=== PATIENT | male | born 1935 | race Caucasian/White ===

== ENCOUNTER 2019-11-18 09:01 | Emergency (ER) | payer MEDICARE, OTHER ==
--- NOTE | 2019-11-18 09:15 | ERPHSYRPT ---
- History of Present Illness Time Seen by Provider: 11/18/19 09:05 Source: patient Exam Limitations: no limitations Physician History: 84 years old male with recent TAVR done at [facility] currently on heart monitor is sent in ER when his heart monitor showed complete heart block in and out multiple times. They try to get hold of him but could not stand later called son and patient is brought in here. Patient reports no chest pain palpitations or shortness of breath. Patient reports since he has a stent put in he is feeling much better and his shortness of breath which used to be there is almost gone. Denies any fever or chills. He is taking Coumadin. Timing/Duration: today Allergies/Adverse Reactions: No Known Drug Allergies Allergy (Unverified 11/18/19 09:20) Home Medications: Atorvastatin Calcium 20 mg DAILY 11/18/19 [History] Celecoxib [Celebrex] 200 mg PO DAILY 11/18/19 [History] Famotidine 20 mg DAILY 11/18/19 [History] Hydrocodone/APAP 10/325 mg [[place] 10/325 MG Tablet] 1 ea BID 11/18/19 [ History] Methimazole 5 mg DAILY 11/18/19 [History] Potassium Chloride 1 ea DAILY 11/18/19 [History] - Review of Systems Constitutional: No Symptoms Eyes: No Symptoms Ears, Nose, & Throat: No Symptoms Respiratory: No Symptoms Cardiac: No Symptoms Abdominal/Gastrointestinal: No Symptoms Genitourinary Symptoms: No Symptoms Musculoskeletal: No Symptoms Skin: No Symptoms Neurological: No Symptoms Psychological: No Symptoms Endocrine: No Symptoms Hematologic/Lymphatic: No Symptoms Immunological/Allergic: No Symptoms - Nursing Vital Signs Nursing Vital Signs: Initial Vital Signs Temperature 97.3 F 11/18/19 09:02 Pulse Rate 69 11/18/19 09:02 Respiratory Rate 16 11/18/19 09:02 Blood Pressure 169/55 11/18/19 09:02 O2 Sat by Pulse Oximetry 98 11/18/19 09:02 Pain Scale Pain Intensity 0 - Physical Exam General Appearance: no apparent distress Eye Exam: PERRL/EOMI Ears, Nose, Throat Exam: normal ENT inspection, pharynx normal Neck Exam: normal inspection, supple, full range of motion Respiratory Exam: normal breath sounds, lungs clear, No chest tenderness Cardiovascular Exam: regular rate/rhythm, normal heart sounds, normal peripheral pulses, murmur Gastrointestinal/Abdomen Exam: soft, normal bowel sounds, No tenderness Back Exam: normal inspection Extremity Exam: normal inspection, normal range of motion Neurologic Exam: alert, oriented x 3, cooperative SpO2 Interpretation: normal O2 Delivery: Room Air - Course Nursing assessment & vital signs reviewed: Yes EKG Interpreted by Me: RATE (Ectopic atrial, 69), NORMAL AXIS, NORMAL INTERVALS , Other (Diffuse ST depression in multiple leads) Ordered Tests: Active Orders 24 hr Category Date Time Status Planishing Press Operator STAT Care 11/18/19 09:13 Active EKG-ER Only STAT Care 11/18/19 09:11 Active IV Insertion STAT Care 11/18/19 09:11 Active CHEST 2 VIEWS (PA AND LAT) Stat Exams 11/18/19 09:12 Completed CBC W DIFF Stat Lab 11/18/19 09:15 Completed CMP Stat Lab 11/18/19 09:15 Completed NT PRO BNP Stat Lab 11/18/19 09:15 Completed PROTIME WITH INR Stat Lab 11/18/19 09:15 Completed TROPONIN Q3H Lab 11/18/19 09:15 Completed TROPONIN Q3H Lab 11/18/19 12:15 Ordered TROPONIN Q3H Lab 11/18/19 15:15 Ordered TROPONIN Q3H Lab 11/18/19 18:15 Ordered TROPONIN Q3H Lab 11/18/19 21:15 Ordered Lab/Rad Data: Laboratory Result Diagrams 11/18/19 09:15 11/18/19 09:15 Laboratory Results 11/18/19 11/18/19 11/18/19 Range/Units 09:15 09:15 09:15 WBC (4.0-10.5) K/mm3 RBC (4.1-5.6) M/mm3 Hgb (12.5-18.0) gm/dl Hct (42-50) % MCV (78-100) fl MCH (26-32) pg MCHC (32-36) g/dl RDW (11.5-14.0) % Plt Count (150-450) K/mm3 MPV (7.5-11.0) fl Gran % (36.0-66.0) % Eos # (Auto) (0-0.5) Absolute Lymphs (auto) (1.0-4.6) Absolute Monos (auto) (0.0-1.3) Lymphocytes % (24.0-44.0) % Monocytes % (0.0-12.0) % Eosinophils % (0.00-5.0) % Basophils % (0.0-0.4) % Absolute Granulocytes (1.4-6.9) Basophils # (0-0.4) PT 18.5 H (8.83-12.87) SECONDS INR 1.62 (0.8-3.0) Sodium 141 (137-145) mmol/L Potassium 4.1 (3.5-5.1) mmol/L Chloride 105 (98-107) mmol/L Carbon Dioxide 28 (22-30) mmol/L Anion Gap 11.9 (5-15) MEQ/L BUN 20 (9-20) mg/dL Creatinine 0.51 L (0.66-1.25) mg/dL Estimated GFR > 60.0 ML/MIN Glucose 103 (74-106) mg/dL Calcium 9.0 (8.4-10.2) mg/dL Total Bilirubin 0.50 (0.2-1.3) mg/dL AST 31 (17-59) U/L ALT 30 (0-50) U/L Alkaline Phosphatase 67 (38-126) U/L Troponin I 0.024 (0.000-0.034) ng/mL NT-Pro-B Natriuret Pep 290 (0-1800) pg/mL Serum Total Protein 7.1 (6.3-8.2) g/dL Albumin 4.0 (3.5-5.0) g/dL Slides for Path Review 11/18/19 Range/Units 09:15 WBC 5.0 (4.0-10.5) K/mm3 RBC 3.90 L (4.1-5.6) M/mm3 Hgb 12.4 L (12.5-18.0) gm/dl Hct 38.0 L (42-50) % MCV 97.4 (78-100) fl MCH 31.8 (26-32) pg MCHC 32.6 (32-36) g/dl RDW 12.9 (11.5-14.0) % Plt Count 97 L (150-450) K/mm3 MPV 11.9 H (7.5-11.0) fl Gran % 63.2 (36.0-66.0) % Eos # (Auto) 0.20 (0-0.5) Absolute Lymphs (auto) 1.18 (1.0-4.6) Absolute Monos (auto) 0.43 (0.0-1.3) Lymphocytes % 23.6 L (24.0-44.0) % Monocytes % 8.6 (0.0-12.0) % Eosinophils % 4.0 (0.00-5.0) % Basophils % 0.6 (0.0-0.4) % Absolute Granulocytes 3.17 (1.4-6.9) Basophils # 0.03 (0-0.4) PT (8.83-12.87) SECONDS INR (0.8-3.0) Sodium (137-145) mmol/L Potassium (3.5-5.1) mmol/L Chloride (98-107) mmol/L Carbon Dioxide (22-30) mmol/L Anion Gap (5-15) MEQ/L BUN (9-20) mg/dL Creatinine (0.66-1.25) mg/dL Estimated GFR ML/MIN Glucose (74-106) mg/dL Calcium (8.4-10.2) mg/dL Total Bilirubin (0.2-1.3) mg/dL AST (17-59) U/L ALT (0-50) U/L Alkaline Phosphatase (38-126) U/L Troponin I (0.000-0.034) ng/mL NT-Pro-B Natriuret Pep (0-1800) pg/mL Serum Total Protein (6.3-8.2) g/dL Albumin (3.5-5.0) g/dL Slides for Path Review - Progress Progress: unchanged, re-examined Progress Note: 11/18/19 09:52 84 years old is evaluated for complete heart block. Patient has ectopic atrial rhythm. He is not in any distress. Initial troponin negative. Chest x-ray did not show any acute findings. [facility] office is contacted , recommended patient needing pacemaker placement. They will call us back with the bed. 11/18/19 12:19 Dr. Mcfadden is the accepting physician. Patient remained stable. He is being transferred via EMS Will see patient in: other Counseled pt/family regarding: diagnosis, need for follow-up, rad results - Departure Departure Disposition: Transfer Clinical Impression: Intermittent complete heart block Condition: Stable Critical Care Time: No Referrals: AKASH FRAUSTO [Primary Care Provider] -
--- NOTE | 2019-11-18 09:46 | XRAY ---
Indication: CHF. Pneumonia. Comparison: None PA/lateral chest hyperinflated and clear with incidental bilateral nipple shadows. Heart is not enlarged with previous cardiac valve replacement. Only thorax intact with mild osteopenia and degenerative changes. Impression: Nonacute hyperinflated chest with chronic features.
[2019-11-18 09:57] LABS: INR 1.62 (0.8-3.0); PROTIME 18.5 SECONDS (8.83-12.87)
[2019-11-18 10:00] LABS: Absolute Neutrophil Ct (ANC) 3.17 (1.4-6.9); BASOPHIL % 0.6 % (0.0-0.4); Basophil (Absolute #) 0.03 (0-0.4); Hemoglobin 12.4 gm/dl (12.5-18.0); Lymphocyte (Absolute #) 1.18 (1.0-4.6); Lymphocytes % 23.6 % (24.0-44.0); Mean Cell Volume 97.4 fl (78-100); Mean Corpuscular Hemoglobin 31.8 pg (26-32); Mean Corpuscular Hgb Concent. 32.6 g/dl (32-36); Mean Platelet Volume 11.9 fl (7.5-11.0); Monocyte (Absolute #) 0.43 (0.0-1.3); Monocytes % 8.6 % (0.0-12.0); Neutrophil % 63.2 % (36.0-66.0); Platelet Count 97 K/mm3 (150-450); Red Cell Distribution Width 12.9 % (11.5-14.0)
[2019-11-18 10:11] LABS: ALKALINE PHOSPHATASE 67 U/L (38-126); ANION GAP 11.9 MEQ/L (5-15); BLOOD UREA NITROGEN 20 mg/dL (9-20); CHLORIDE 105 mmol/L (98-107); Carbon Dioxide 28 mmol/L (22-30); Creatinine 1 0.51 mg/dL (0.66-1.25); Glucose 103 mg/dL (74-106); NT PRO BNP 290 pg/mL (0-1800); Potassium 4.1 mmol/L (3.5-5.1); SGOT/AST 31 U/L (17-59); SGPT/ALT 30 U/L (0-50); SODIUM 141 mmol/L (137-145); Total Protein 7.1 g/dL (6.3-8.2)
[2019-11-18 13:32] VITALS: BP 142/57
[2019-11-18 13:34] VITALS: PULSE 65; O2SAT 99
== END 2019-11-18 13:22 | disposition critical access hospital (66) ==
LOC: ED 09:01
DX: I44.2 Atrioventricular block, complete (principal); Z79.01 Long term (current) use of anticoagulants; Z79.899 Other long term (current) drug therapy
CPT/HCPCS: 36000; 36415; 71046; 80053; 83880; 84484; 85025; 85610; 93005; 93041; 99285

== ENCOUNTER 2020-09-12 11:14 | Day surgery (SDC) | payer MEDICARE, OTHER ==
[2020-09-12] MEDS ORDERED: Depo-Medrol 40 MG/ML IM ONE (11:15)
[2020-09-12] MEDS ORDERED: Xylocaine 1% Vial 30 ML PF IJ ONE (11:15)
[2020-09-12] MEDS ORDERED: LIDOCAINE HCL 2% 100 MG/5 ML IJ ONE (11:15)
[2020-09-12 12:35] LABS: INR 1.23 (0.8-3.0); PROTIME 13.9 SECONDS (8.83-12.87)
[2020-09-12] MEDS ORDERED: Versed 2 MG/2 ML Injection ONE (13:22)
[2020-09-12] MEDS ORDERED: SUBLIMAZE 100 MCG/2 ML ONE (13:22)
[2020-09-12] MEDS ORDERED: Lactated Ringers 1,000 ML IV ONE (15:05)
--- NOTE | 2020-09-12 15:12 | XRAY ---
Indication: Bilateral L4-S1 MBB. Intraoperative fluoroscopy provided for 15 seconds. 2 digital spot images submitted for interpretation demonstrates posterior needle tips projecting over the expected left and right L4-S1 nerve roots. Correlate with intraoperative findings/report.
--- NOTE | 2020-09-12 15:17 | XRAY ---
15 seconds fluoroscopy time in surgery for bilateral L4-S1 MBB.
== END 2020-09-12 13:51 | disposition home or self-care (01) ==
LOC: SDC-PAIN 11:14
PROVIDERS: ATTEND Psychiatry & Neurology Pain Medicine
DX: M47.816 Spondylosis without myelopathy or radiculopathy, lumbar region (principal); I82.409 Acute embolism and thrombosis of unspecified deep veins of unspecified lower extremity; I35.0 Nonrheumatic aortic (valve) stenosis; M54.12 Radiculopathy, cervical region; M19.90 Unspecified osteoarthritis, unspecified site; Z79.899 Other long term (current) drug therapy
CPT/HCPCS: 36415; 64493; 64494; 72020; 77002; 85610; J1030; J2001; J2250; J3010

== ENCOUNTER 2022-02-22 14:41 | Emergency (ER) | payer MEDICARE ==
[2022-02-22 15:22] LABS: Absolute Neutrophil Ct (ANC) 9.68 x10^3/uL (1.4-6.9); Basophil (Absolute #) 0.03 x10^3/uL (0-0.4); Eosinophil (Absolute #) 0 x10^3/uL (0-0.5); Hematocrit 36.1 % (42-50); Hemoglobin 11.5 g/dL (12.5-18.0); Lymphocyte (Absolute #) 0.34 x10^3/uL (1.0-4.6); Lymphocytes % 3.2 % (24.0-44.0); Mean Cell Volume 98.9 fL (78-100); Mean Corpuscular Hemoglobin 31.5 pg (26-32); Mean Corpuscular Hgb Concent. 31.9 g/dL (32-36); Monocyte (Absolute #) 0.46 x10^3/uL (0.0-1.3); Monocytes % 4.4 % (0.0-12.0); Neutrophil % 91.7 % (36.0-66.0); Platelet Count 109 x10^3/uL (150-450); Red Blood Count 3.65 x10^6/uL (4.1-5.6); Red Cell Distribution Width 13.1 % (11.5-14.0); White Blood Count 10.6 x10^3/uL (4.0-10.5)
[2022-02-22 15:26] LABS: Mucus SLIGHT /HPF (NEGATIVE); WBC 0-2 /HPF (0-5)
[2022-02-22 15:32] LABS: Appearance CLEAR (CLEAR); Bilirubin NEGATIVE (NEGATIVE); Glucose NEGATIVE (NEGATIVE); Ketones NEGATIVE (NEGATIVE); Protein,Urine Dip NEGATIVE (Negative); RBC MODERATE Ery/ul (0-5); Specific Gravity 1.015 (1.005-1.025); Urine Cultured Indicated? YES; Urobilinogen 0.2 mg/dL (0-1)
[2022-02-22 15:33] LABS: ALBUMIN 4.4 g/dL (3.5-5.0); ALKALINE PHOSPHATASE 74 U/L (38-126); BLOOD UREA NITROGEN 16 mg/dL (9-20); CHLORIDE 100 mmol/L (98-107); Calcium 9.4 mg/dL (8.4-10.2); Carbon Dioxide 31 mmol/L (22-30); Creatinine 1 0.59 mg/dL (0.66-1.25); Dipstick done @ ? MAIN LAB; EST GLOMERULAR FILTRATION RATE > 60.0 ML/MIN; Glucose 130 mg/dL (74-106); LIPASE 76 U/L (23-300); Nitrite POSITIVE (NEGATIVE); Potassium 3.9 mmol/L (3.5-5.1); SGOT/AST 50 U/L (17-59); SGPT/ALT 35 U/L (0-50); SODIUM 137 mmol/L (137-145); Total Protein 7.7 g/dL (6.3-8.2)
--- NOTE | 2022-02-22 15:37 | ERPHSYRPT ---
- History of Present Illness Time Seen by Provider: 02/22/22 14:46 Historian: patient Exam Limitations: no limitations Patient Subjective Stated Complaint: C/O lower abdominal pain with constipation and burning/troubles urinating for a few days. Triage Nursing Assessment: Patient is alert and oriented. No SOB noted. Abdomen is soft and flat. C/O increased tenderness with palpation to right lower abdomen. Physician History: Patient here with lower abdominal pain. Inability to pee since yesterday. Patient has some urinary retention. Associated with his back pain, with constipation. No falls no trauma no fever no chills. No other red flag symptoms for back pain. No falls no trauma. Patient did see his PCP yesterday. Timing/Duration: yesterday Activities at Onset: none Quality: cramping Abdominal Pain Onset Location: suprapubic Pain Radiation: no radiation Severity of Pain-Max: mild Severity of Pain-Current: mild Associated Symptoms: other Allergies/Adverse Reactions: No Known Drug Allergies Allergy (Verified 02/22/22 14:51) Home Medications: Atorvastatin Calcium 20 mg PO HS 11/18/19 [History] Hydrocodone/APAP 10/325 mg [[place] 10/325 MG Tablet] 1 ea PO BID PRN 11/18/19 [History] Methimazole 7.5 mg PO DAILY 11/18/19 [History] Potassium Chloride 1 tab PO BID 11/18/19 [History] Doxazosin Mesylate [Cardura] 1 tab PO DAILY 02/22/22 [History] Melatonin 1 tab PO HS 02/22/22 [History] Multivitamin 1 tab PO DAILY 02/22/22 [History] Warfarin Sodium 1 tab PO DAILY 02/22/22 [History] Warfarin Sodium 5 mg [Jantoven] 1 tab PO DAILY 02/22/22 [History] Hx Tetanus, Diphtheria Vaccination/Date Given: Yes Hx Influenza Vaccination/Date Given: Yes Hx Pneumococcal Vaccination/Date Given: Yes Immunizations Up to Date: Yes Travel Risk - International Travel Have you traveled outside of the country in past 3 weeks: No - Coronavirus Screening Are you exhibiting any of the following symptoms?: No Close contact with a COVID-19 positive Pt in past 14-21 Days: No - Vaccine Status Have you recieved a Covid-19 vaccination: Yes Adjudication Specialist: Moderna - Vaccination Dates Date of 2cond Vaccination (if applicable): 08/24/20 - Review of Systems Constitutional: No Fever, No Chills Eyes: No Symptoms Ears, Nose, & Throat: No Symptoms Respiratory: No Cough, No Dyspnea Cardiac: No Chest Pain, No Edema, No Syncope Abdominal/Gastrointestinal: Abdominal Pain, No Nausea, No Vomiting, No Diarrhea Genitourinary Symptoms: Urinary Retention, No Dysuria Musculoskeletal: No Back Pain, No Neck Pain Skin: No Rash Neurological: No Dizziness, No Focal Weakness, No Sensory Changes Psychological: No Symptoms Endocrine: No Symptoms All Other Systems: Reviewed and Negative - Past Medical History Pertinent Past Medical History: Yes Cardiac History: Coronary Artery Disease, High Cholesterol, Hypertension Endocrine Medical History: Hyperthyroidism Musculoskeletal History: Arthritis GI Medical History: GERD Psycho-Social History: Other Other Medical History: chronic back pain, insomnia, seasonal allergies - Past Surgical History Past Surgical History: Yes Cardiac: Cardiac Catheterization, Cardiac Stent, Pacemaker Musculoskeletal: Orthopedic Surgery Other Surgical History: knee replaced - Social History Smoking Status: Never smoker Exposure to second hand smoke: No Drug Use: none Patient Lives Alone: No - Nursing Vital Signs Nursing Vital Signs: Initial Vital Signs Temperature 97.7 F 02/22/22 14:51 Pulse Rate 83 02/22/22 14:51 Respiratory Rate 17 02/22/22 14:51 Blood Pressure 176/89 02/22/22 14:51 O2 Sat by Pulse Oximetry 96 02/22/22 14:51 Pain Scale Pain Intensity 2 - Physical Exam General Appearance: no apparent distress, alert Eye Exam: PERRL/EOMI, eyes nml inspection Ears, Nose, Throat Exam: normal ENT inspection, pharynx normal, moist mucous membranes Neck Exam: normal inspection, non-tender, supple, full range of motion Respiratory Exam: normal breath sounds, lungs clear, No respiratory distress Cardiovascular Exam: regular rate/rhythm, normal heart sounds Gastrointestinal/Abdomen Exam: soft, tenderness, other (Mild abdominal tenderness with no rebound or guarding.), No mass Back Exam: normal inspection, normal range of motion, No CVA tenderness, No vertebral tenderness Extremity Exam: normal inspection, normal range of motion, pelvis stable Neurologic Exam: alert, oriented x 3, cooperative, normal mood/affect, nml cerebellar function, sensation nml, No motor deficits Skin Exam: normal color, warm, dry SpO2: 96 - Course Nursing assessment & vital signs reviewed: Yes EKG Interpreted by Me: Sinus Rhythm Ordered Tests: Active Orders 24 hr Category Date Time Status EKG-ER Only STAT Care 02/22/22 15:04 Active IV Insertion STAT Care 02/22/22 15:04 Active CBC W DIFF Stat Lab 02/22/22 15:20 Completed CMP Stat Lab 02/22/22 15:20 Completed CULTURE,URINE Stat Lab 02/22/22 15:20 Received LIPASE Stat Lab 02/22/22 15:20 Completed UA W/RFX CULTURE Stat Lab 02/22/22 15:20 Completed Lab/Rad Data: Laboratory Result Diagrams 02/22/22 15:20 02/22/22 15:20 Laboratory Results 02/22/22 02/22/22 02/22/22 Range/Units 15:20 15:20 15:20 WBC 10.6 H (4.0-10.5) x10^3/uL RBC 3.65 L (4.1-5.6) x10^6/uL Hgb 11.5 L (12.5-18.0) g/dL Hct 36.1 L (42-50) % MCV 98.9 (78-100) fL MCH 31.5 (26-32) pg MCHC 31.9 L (32-36) g/dL RDW 13.1 (11.5-14.0) % Plt Count 109 L (150-450) x10^3/uL MPV 12.0 H (7.5-11.0) fL Gran % 91.7 H (36.0-66.0) % Immature Gran % (Auto) 0.4 (0.00-0.4) % Nucleat RBC Rel Count 0.0 (0.00-0.1) % Eos # (Auto) 0 (0-0.5) x10^3/uL Immature Gran # (Auto) 0.04 H (0.00-0.03) x10^3u/L Absolute Lymphs (auto) 0.34 L (1.0-4.6) x10^3/uL Absolute Monos (auto) 0.46 (0.0-1.3) x10^3/uL Absolute Nucleated RBC 0.00 (0.00-0.01) x10^3u/L Lymphocytes % 3.2 L (24.0-44.0) % Monocytes % 4.4 (0.0-12.0) % Eosinophils % 0.0 (0.00-5.0) % Basophils % 0.3 (0.0-0.4) % Absolute Granulocytes 9.68 H (1.4-6.9) x10^3/uL Basophils # 0.03 (0-0.4) x10^3/uL Sodium 137 (137-145) mmol/L Potassium 3.9 (3.5-5.1) mmol/L Chloride 100 (98-107) mmol/L Carbon Dioxide 31 H (22-30) mmol/L Anion Gap 9.0 (5-15) MEQ/L BUN 16 (9-20) mg/dL Creatinine 0.59 L (0.66-1.25) mg/dL Estimated GFR > 60.0 ML/MIN Glucose 130 H (74-106) mg/dL Calcium 9.4 (8.4-10.2) mg/dL Total Bilirubin 1.60 H (0.2-1.3) mg/dL AST 50 (17-59) U/L ALT 35 (0-50) U/L Alkaline Phosphatase 74 (38-126) U/L Serum Total Protein 7.7 (6.3-8.2) g/dL Albumin 4.4 (3.5-5.0) g/dL Lipase 76 (23-300) U/L Urinalys Dipstick Clnc MAIN LAB Urine Color YELLOW (YELLOW) Urine Appearance CLEAR (CLEAR) Urine pH 6.0 (5-6) Ur Specific [place] 1.015 (1.005-1.025) POC Urine Protein Conf NEGATIVE (Negative) Urine Ketones NEGATIVE (NEGATIVE) Urine Nitrite POSITIVE (NEGATIVE) Urine Bilirubin NEGATIVE (NEGATIVE) Urine Urobilinogen 0.2 (0-1) mg/dL Urine Leukocytes NEGATIVE (NEGATIVE) Urine WBC (Auto) 0-2 (0-5) /HPF Urine RBC (Auto) 11-15 (0-2) /HPF Urine RBC MODERATE (0-5) [place]/ul Urine Mucus (Auto) SLIGHT (NEGATIVE) /HPF Ur Culture Indicated? YES Urine Glucose NEGATIVE (NEGATIVE) mg/dL Slides for Path Review YES - Progress Progress: improved Progress Note: 02/22/22 15:43 Patient feeling improved here with interventions. We did place a Rashid catheter. Patient had over 1000 mL out immediately. Most likely this is the source of his constipation and large urinary bladder causing irritation, mechanical issue. Plan for basic labs, UA, will anchor the Rashid catheter for continued important drainage. We will consider a CT scan based on course. 02/22/22 16:19 No UTI. Rest of labs remained stable. Patient felt much improved with Rashid catheter. I did describe the risks and benefits of a CT scan today to the patient. Patient ultimately declined CT scan. States he would rather follow-up as an outpatient. Patient was given urology outpatient follow-up, Dr. Moulton. As well as, seeing his PCP. He return here at any point time for new or changing symptoms. I did describe the risks and benefits of going home with a Rashid. States his understanding. We will follow-up as described. - Departure Departure Disposition: Home Clinical Impression: Urinary retention Condition: Stable Critical Care Time: No Referrals: MULUGETA BOSS MD [Primary Care Provider] - Follow up/PCP as directed REN MOULTON [COURTESY STAFF] - Follow up/PCP as directed Instructions: Urinary Retention Additional Instructions: You should call the urologist first thing Thursday, Dr. Moulton. Tell them you were seen in the emergency department this weekend, have urinary retention and were discharged home with a Rashid catheter. You may return here to this emergency department for any new or changing symptoms. Otherwise see your PCP or the urologist in close follow-up this week.
[2022-02-22 15:49] LABS: Slide Review 1 YES
[2022-02-22 16:13] VITALS: O2SAT 96
[2022-02-22 16:48] VITALS: BP 124/44; PULSE 64
== END 2022-02-22 16:46 | disposition home or self-care (01) ==
LOC: ED 14:41
DX: R33.9 Retention of urine, unspecified (principal); R10.30 Lower abdominal pain, unspecified; K59.00 Constipation, unspecified; M54.9 Dorsalgia, unspecified; E78.5 Hyperlipidemia, unspecified; I10 Essential (primary) hypertension; Z79.899 Other long term (current) drug therapy; Z79.01 Long term (current) use of anticoagulants
CPT/HCPCS: 36000; 36415; 51702; 80053; 81015; 83690; 85025; 87086; 93005; 99284

== ENCOUNTER 2022-03-24 17:39 | Emergency (ER) | payer MEDICARE ==
--- NOTE | 2022-03-24 17:42 | ERPHSYRPT ---
- History of Present Illness Time Seen by Provider: 03/24/22 17:42 Source: patient, family Exam Limitations: no limitations Physician History: 87-year-old white male who has a Rashid catheter and leg bag in place. Patient got out of the shower about an hour prior to arrival and noticed the bag was leaking. He is here merely to change out the Rashid bag. He has no other complaints Timing/Duration: today Activites at Onset: none Quality: other Onset Location: other (No pain no pain) Pain Radiation: none Severity of Pain-Max: none Severity of Pain-Current: none Modifying Factors: Improves With: nothing Associated Symptoms: denies symptoms Prior abdominal problems: none Allergies/Adverse Reactions: No Known Drug Allergies Allergy (Verified 03/24/22 17:44) Home Medications: Atorvastatin Calcium 20 mg PO HS 11/18/19 [History] Hydrocodone/APAP 10/325 mg [[place] 10/325 MG Tablet] 1 ea PO BID PRN 11/18/19 [History] Methimazole 7.5 mg PO DAILY 11/18/19 [History] Potassium Chloride 1 tab PO BID 11/18/19 [History] Doxazosin Mesylate [Cardura] 1 tab PO DAILY 02/22/22 [History] Melatonin 1 tab PO HS 02/22/22 [History] Multivitamin 1 tab PO DAILY 02/22/22 [History] Warfarin Sodium 1 tab PO DAILY 02/22/22 [History] Warfarin Sodium 5 mg [Jantoven] 1 tab PO DAILY 02/22/22 [History] Hx Tetanus, Diphtheria Vaccination/Date Given: Yes Hx Influenza Vaccination/Date Given: Yes Hx Pneumococcal Vaccination/Date Given: Yes Travel Risk - International Travel Have you traveled outside of the country in past 3 weeks: No - Coronavirus Screening Are you exhibiting any of the following symptoms?: No Close contact with a COVID-19 positive Pt in past 14-21 Days: No - Vaccine Status Have you recieved a Covid-19 vaccination: Yes Molding Process Technician: Moderna - Vaccination Dates Date of 2cond Vaccination (if applicable): 08/24/20 - Past Medical History Pertinent Past Medical History: Yes Cardiac History: Coronary Artery Disease, High Cholesterol, Hypertension Endocrine Medical History: Hyperthyroidism Musculoskeletal History: Arthritis GI Medical History: GERD Psycho-Social History: Other Other Medical History: chronic back pain, insomnia, seasonal allergies - Past Surgical History Past Surgical History: Yes Cardiac: Cardiac Catheterization, Cardiac Stent, Pacemaker Musculoskeletal: Orthopedic Surgery Other Surgical History: knee replaced - Social History Smoking Status: Never smoker Exposure to second hand smoke: No Drug Use: none Patient Lives Alone: No - Review of Systems Constitutional: No Symptoms Eyes: No Symptoms Ears, Nose, & Throat: No Symptoms Respiratory: No Symptoms Cardiac: No Symptoms Abdominal/Gastrointestinal: No Symptoms Genitourinary Symptoms: No Symptoms Musculoskeletal: No Symptoms Skin: No Symptoms Neurological: No Symptoms Psychological: No Symptoms Endocrine: No Symptoms Hematologic/Lymphatic: No Symptoms Immunological/Allergic: No Symptoms - Nursing Vital Signs Nursing Vital Signs: Initial Vital Signs Temperature 97.6 F 03/24/22 17:47 Pulse Rate 68 03/24/22 17:47 Respiratory Rate 19 03/24/22 17:47 Blood Pressure 168/59 03/24/22 17:47 O2 Sat by Pulse Oximetry 97 03/24/22 17:47 Pain Scale Pain Intensity 0 - Physical Exam General Appearance: no apparent distress, alert Eye Exam: PERRL/EOMI, eyes nml inspection Ears, Nose, Throat Exam: normal ENT inspection, moist mucous membranes Neck Exam: normal inspection, non-tender, supple, full range of motion Respiratory Exam: airway intact, No chest tenderness, No respiratory distress Gastrointestinal/Abdomen Exam: No tenderness Rectal Exam: not done Back Exam: normal inspection, normal range of motion, No CVA tenderness, No vertebral tenderness Extremity Exam: normal inspection, normal range of motion, pelvis stable Neurologic Exam: alert, oriented x 3, cooperative, fructose loader II-XII nml as tested Skin Exam: normal color, warm, dry Lymphatic Exam: No adenopathy O2 Delivery: Room Air - Course Nursing assessment & vital signs reviewed: Yes - Progress Progress: unchanged Counseled pt/family regarding: diagnosis - Departure Departure Disposition: Home Clinical Impression: Encounter for medical screening examination Condition: Stable Critical Care Time: No Referrals: MULUGETA BOSS MD [Primary Care Provider] - Follow up/PCP as directed Additional Instructions: Continue your Rashid catheter and Rashid bag care as instructed.
[2022-03-24 17:51] VITALS: BP 168/59; PULSE 68; O2SAT 97
== END 2022-03-24 18:04 | disposition home or self-care (01) ==
LOC: ED 17:39
DX: Z46.6 Encounter for fitting and adjustment of urinary device (principal); E78.5 Hyperlipidemia, unspecified; I10 Essential (primary) hypertension; Z79.01 Long term (current) use of anticoagulants; Z79.899 Other long term (current) drug therapy
CPT/HCPCS: 99281

== ENCOUNTER 2022-11-09 17:24 | Emergency (ER) | payer MEDICARE ==
--- NOTE | 2022-11-09 18:53 | ERPHSYRPT ---
- History of Present Illness Time Seen by Provider: 11/09/22 18:53 Source: patient, family Exam Limitations: no limitations Patient Subjective Stated Complaint: Pt had a syncopal episode a week ago and fell and injured his left shoulder and hit his head, pt wanted his pacemaker checked to see if it was working properly and also to check his PTT and INR because he is on Warfarin Triage Nursing Assessment: Pt brought to the ER by family, hypertensive, rates pain as 9/10, unable to stand or walk on own, states that he now uses a walker, severe pain to left shoulder and left hand is swollen, pt concerned about head since he is on blood thinners and he hit his head, pt did have a syncopal episode and was unsure as to how long he was passed out last Thursday, pulses are normal, he has a [employer] pacemaker and we checked it and are currently waiting on the report, pulses normal, skin n/w/d, no difficulties with breathing Physician History: He had a fall a week ago and has had some shoulder pain since, had a minor head bump as well. Brief syncope then, has a pacemaker, seems to be doing OK. Takes coumadin per his range rider. Witnessed: by family Prior Episodes: other (none for the past week) Timing/Duration: week(s) (one week ago) Precipitating Factors: unknown Context: standing Loss of Consciousness: brief (seconds), unsure Charcter of event(s): felt faint Allergies/Adverse Reactions: No Known Drug Allergies Allergy (Verified 11/09/22 18:26) Home Medications: Atorvastatin Calcium 20 mg PO HS 11/18/19 [History] Hydrocodone/APAP 10/325 mg [[place] 10/325 MG Tablet] 1 ea PO BID PRN 11/18/19 [History] Potassium Chloride 1 tab PO BID 11/18/19 [History] Doxazosin Mesylate [Cardura] 1 tab PO DAILY 02/22/22 [History] Melatonin 1 tab PO HS 02/22/22 [History] Multivitamin 1 tab PO DAILY 02/22/22 [History] Warfarin Sodium 1 tab PO DAILY 02/22/22 [History] Warfarin Sodium 5 mg [Jantoven] 1 tab PO DAILY 02/22/22 [History] Famotidine 20 mg [Pepcid 20 MG] 40 mg PO BID 11/09/22 [History] Hx Tetanus, Diphtheria Vaccination/Date Given: Yes Hx Influenza Vaccination/Date Given: Yes Hx Pneumococcal Vaccination/Date Given: Yes Travel Risk - International Travel Have you traveled outside of the country in past 3 weeks: No - Coronavirus Screening Are you exhibiting any of the following symptoms?: No Close contact with a COVID-19 positive Pt in past 14-21 Days: No - Vaccine Status Have you recieved a Covid-19 vaccination: Yes [employer]: Moderna - Vaccination Dates Date of 2cond Vaccination (if applicable): 08/24/20 - Past Medical History Pertinent Past Medical History: Yes Neurological History: No Pertinent History ENT History: No Pertinent History Cardiac History: Coronary Artery Disease, High Cholesterol, Hypertension Respiratory History: No Pertinent History Endocrine Medical History: Hyperthyroidism Musculoskeletal History: Arthritis GI Medical History: GERD History: No Pertinent History Psycho-Social History: No Pertinent History, Other Male Reproductive Disorders: No Pertinent History Other Medical History: chronic back pain, insomnia, seasonal allergies - Past Surgical History Past Surgical History: Yes Cardiac: Cardiac Catheterization, Cardiac Stent, Pacemaker Musculoskeletal: Orthopedic Surgery Other Surgical History: knee replaced - Social History Smoking Status: Never smoker Exposure to second hand smoke: No Drug Use: none Patient Lives Alone: No - Review of Systems Constitutional: No Symptoms Eyes: No Symptoms Ears, Nose, & Throat: No Symptoms Respiratory: No Symptoms Cardiac: No Symptoms Abdominal/Gastrointestinal: No Symptoms Genitourinary Symptoms: No Symptoms Musculoskeletal: Arthralgias, Joint Pain Skin: No Symptoms Neurological: No Symptoms Psychological: No Symptoms Endocrine: No Symptoms Hematologic/Lymphatic: No Symptoms Immunological/Allergic: No Symptoms All Other Systems: Reviewed and Negative Physical Exam - Nursing Vital Signs Nursing Vital Signs: Initial Vital Signs Temperature 99.0 F 11/09/22 18:07 Pulse Rate 79 11/09/22 18:07 Blood Pressure 160/62 11/09/22 18:07 O2 Sat by Pulse Oximetry 97 11/09/22 18:07 Pain Scale Pain Intensity 4 - [place] Coma Scale Best Eye Response (Omar): (4) open spontaneously Best Verbal Response ([place]): (5) oriented Best Motor Response ([place]): (6) obeys commands Omar Total: 15 - Physical Exam General Appearance: no apparent distress Eye Exam: bilateral eye: normal inspection, PERRL Ears, Nose, Throat Exam: normal ENT inspection Neck Exam: normal inspection Respiratory: normal breath sounds Cardiovascular: regular rate/rhythm Gastrointestinal: soft, normal bowel sounds Rectal Exam: deferred Back Exam: normal inspection Extremity Exam: contusions, limited range of motion (left shoulder contusion, reduced ROM, NVI) Mental Status: alert, oriented x 3, 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 Exam: normal hearing, normal speech, PERRL Motor/Sensory: no motor deficit, no sensory deficit Skin Exam: normal color, warm SpO2 Interpretation: normal SpO2: 97 O2 Delivery: Room Air - Course Nursing assessment & vital signs reviewed: Yes EKG Interpreted by Me: RATE (81), Other (paced) - Radiology Exams Left Shoulder X-ray Interpretation: Teleradiologist Report, No Fracture, Other (DJD) - CT Exams Head CT Interpretation: Tele-radiologist Report, Other (no acute changes ) Cervical Spine CT Interpretation: Other (no fx) Ordered Tests: Active Orders 24 hr Category Date Time Status EKG-ER Only STAT Care 11/09/22 19:18 Active CERVICAL SPINE WO CONTRAST [CT] Stat Exams 11/09/22 19:04 Completed CHEST 1 VIEW (PORTABLE) Stat Exams 11/09/22 19:01 Taken HEAD WITHOUT CONTRAST [CT] Stat Exams 11/09/22 19:03 Completed HUMERUS Stat Exams 11/09/22 19:02 Completed SHOULDER Stat Exams 11/09/22 19:01 Completed CBC W DIFF Stat Lab 11/09/22 19:10 Completed CMP Stat Lab 11/09/22 19:10 Completed PT INR [PROTIME WITH INR] Stat Lab 11/09/22 19:10 Completed TROPONIN Q4H Lab 11/09/22 19:10 Completed TROPONIN Q4H Lab 11/09/22 23:00 Ordered Medication Summary Discontinued Medications Generic Name Dose Route Start Last Admin Trade Name Freq PRN Reason Stop Dose Admin Acetaminophen 650 mg 11/09/22 22:35 Acetaminophen 325 Mg Tablet PO 11/09/22 22:36 STAT STA Lab/Rad Data: Laboratory Result Diagrams 11/09/22 19:10 11/09/22 19:10 Laboratory Results 11/09/22 11/09/22 11/09/22 Range/Units 19:10 19:10 19:10 WBC (4.0-10.5) x10^3/uL RBC (4.1-5.6) x10^6/uL Hgb (12.5-18.0) g/dL Hct (42-50) % MCV (78-100) fL MCH (26-32) pg MCHC (32-36) g/dL RDW (11.5-14.0) % Plt Count (150-450) x10^3/uL MPV (7.5-11.0) fL Gran % (36.0-66.0) % Immature Gran % (Auto) (0.00-0.4) % Nucleat RBC Rel Count (0.00-0.1) % Eos # (Auto) (0-0.5) x10^3/uL Immature Gran # (Auto) (0.00-0.03) x10^3u/L Absolute Lymphs (auto) (1.0-4.6) x10^3/uL Absolute Monos (auto) (0.0-1.3) x10^3/uL Absolute Nucleated RBC (0.00-0.01) x10^3u/L Lymphocytes % (24.0-44.0) % Monocytes % (0.0-12.0) % Eosinophils % (0.00-5.0) % Basophils % (0.0-0.4) % Absolute Granulocytes (1.4-6.9) x10^3/uL Basophils # (0-0.4) x10^3/uL PT 73.2 H (9.4-12.5) SECONDS INR 7.82 H* (0.8-3.0) Sodium 128 L (137-145) mmol/L Potassium 4.1 (3.5-5.1) mmol/L Chloride 91 L (98-107) mmol/L Carbon Dioxide 34 H (22-30) mmol/L Anion Gap 7.8 (5-15) MEQ/L BUN 17 (9-20) mg/dL Creatinine 0.49 L (0.66-1.25) mg/dL Estimated GFR > 60.0 ML/MIN Glucose 112 H (74-106) mg/dL Calcium 7.8 L (8.4-10.2) mg/dL Total Bilirubin 1.40 H (0.2-1.3) mg/dL AST 49 (17-59) U/L ALT 52 H (0-50) U/L Alkaline Phosphatase 78 (38-126) U/L Troponin I 0.026 (0.000-0.034) ng/mL Serum Total Protein 6.1 L (6.3-8.2) g/dL Albumin 2.9 L (3.5-5.0) g/dL 11/09/22 Range/Units 19:10 WBC 9.7 (4.0-10.5) x10^3/uL RBC 3.32 L (4.1-5.6) x10^6/uL Hgb 10.2 L (12.5-18.0) g/dL Hct 30.5 L (42-50) % MCV 91.9 (78-100) fL MCH 30.7 (26-32) pg MCHC 33.4 (32-36) g/dL RDW 12.9 (11.5-14.0) % Plt Count 129 L (150-450) x10^3/uL MPV 11.1 H (7.5-11.0) fL Gran % 78.7 H (36.0-66.0) % Immature Gran % (Auto) 1.0 H (0.00-0.4) % Nucleat RBC Rel Count 0.0 (0.00-0.1) % Eos # (Auto) 0.03 (0-0.5) x10^3/uL Immature Gran # (Auto) 0.10 H (0.00-0.03) x10^3u/L Absolute Lymphs (auto) 0.70 L (1.0-4.6) x10^3/uL Absolute Monos (auto) 1.21 (0.0-1.3) x10^3/uL Absolute Nucleated RBC 0.00 (0.00-0.01) x10^3u/L Lymphocytes % 7.3 L (24.0-44.0) % Monocytes % 12.5 H (0.0-12.0) % Eosinophils % 0.3 (0.00-5.0) % Basophils % 0.2 (0.0-0.4) % Absolute Granulocytes 7.59 H (1.4-6.9) x10^3/uL Basophils # 0.02 (0-0.4) x10^3/uL PT (9.4-12.5) SECONDS INR (0.8-3.0) Sodium (137-145) mmol/L Potassium (3.5-5.1) mmol/L Chloride (98-107) mmol/L Carbon Dioxide (22-30) mmol/L Anion Gap (5-15) MEQ/L BUN (9-20) mg/dL Creatinine (0.66-1.25) mg/dL Estimated GFR ML/MIN Glucose (74-106) mg/dL Calcium (8.4-10.2) mg/dL Total Bilirubin (0.2-1.3) mg/dL AST (17-59) U/L ALT (0-50) U/L Alkaline Phosphatase (38-126) U/L Troponin I (0.000-0.034) ng/mL Serum Total Protein (6.3-8.2) g/dL Albumin (3.5-5.0) g/dL - Progress Progress: improved Progress Note: 11/09/22 22:43 His pacer interrogated, no abnormalities of concern, no fx or acute imaging concerns, labs - INR quite elevated, but no active bleeding, sodium low, 128, he says that is chronic and does not want any tx for that, will hold coumadin and call his card. Dr major. Counseled pt/family regarding: lab results, diagnosis, need for follow-up, rad results Medical Desision Making - Independent Historian Additional History obtained from: Spouse - Diagnostic Testing Diagnostic test were ordered, analyzed, and reviewed by me: Yes Radiological Interpretation: Teleradiologist Report - Risk of complications Low Risk: Low risk of morbidity from additional dx testing or treatment - Departure Departure Disposition: Home Clinical Impression: Syncope Contusion of shoulder, left Qualifiers: Encounter type: initial encounter Qualified Code(s): S40.012A - Contusion of left shoulder, initial encounter Coumadin toxicity Qualifiers: Encounter type: initial encounter Injury intent: accidental or unintentional Qualified Code(s): T45.511A - Poisoning by anticoagulants, accidental (unin tentional), initial encounter Condition: Stable Critical Care Time: No Referrals: MULUGETA BOSS MD [Primary Care Provider] - Follow up/PCP as directed Instructions: Contusion (DC), Minor Head Injury (DC) Additional Instructions: Home, do not take any more coumadin (warfarin) at this time, continue your other med, contact your range rider in the morning about your INR level (7.8) and your fainting episode. See PCP for your shoulder pain.
[2022-11-09 19:15] LABS: Absolute Neutrophil Ct (ANC) 7.59 x10^3/uL (1.4-6.9); BASOPHIL % 0.2 % (0.0-0.4); Basophil (Absolute #) 0.02 x10^3/uL (0-0.4); Eosinophil % 0.3 % (0.00-5.0); Eosinophil (Absolute #) 0.03 x10^3/uL (0-0.5); Hematocrit 30.5 % (42-50); Hemoglobin 10.2 g/dL (12.5-18.0); Lymphocytes % 7.3 % (24.0-44.0); Mean Cell Volume 91.9 fL (78-100); Mean Corpuscular Hemoglobin 30.7 pg (26-32); Mean Corpuscular Hgb Concent. 33.4 g/dL (32-36); Mean Platelet Volume 11.1 fL (7.5-11.0); Monocyte (Absolute #) 1.21 x10^3/uL (0.0-1.3); Monocytes % 12.5 % (0.0-12.0); Neutrophil % 78.7 % (36.0-66.0); Platelet Count 129 x10^3/uL (150-450); Red Blood Count 3.32 x10^6/uL (4.1-5.6); Red Cell Distribution Width 12.9 % (11.5-14.0); White Blood Count 9.7 x10^3/uL (4.0-10.5)
[2022-11-09 19:26] LABS: ALBUMIN 2.9 g/dL (3.5-5.0); ALKALINE PHOSPHATASE 78 U/L (38-126); ANION GAP 7.8 MEQ/L (5-15); BLOOD UREA NITROGEN 17 mg/dL (9-20); CHLORIDE 91 mmol/L (98-107); Calcium 7.8 mg/dL (8.4-10.2); Carbon Dioxide 34 mmol/L (22-30); Creatinine 1 0.49 mg/dL (0.66-1.25); EST GLOMERULAR FILTRATION RATE > 60.0 ML/MIN; Glucose 112 mg/dL (74-106); Potassium 4.1 mmol/L (3.5-5.1); SGOT/AST 49 U/L (17-59); SGPT/ALT 52 U/L (0-50); SODIUM 128 mmol/L (137-145); Total Protein 6.1 g/dL (6.3-8.2)
[2022-11-09 19:33] LABS: PROTIME 73.2 SECONDS (9.4-12.5)
[2022-11-09 19:41] LABS: INR 7.82 (0.8-3.0)
--- NOTE | 2022-11-09 20:06 | XRAY ---
CLINICAL HISTORY:Trauma; COMPARISON:None; TECHNIQUES:Multiple, contiguous, nonenhanced CT scan of the brain in the axial plane with multiplanar reconstructions in bony and soft tissue windows. CTDI: 53.9 mGy, DLP: 1140.7 mGy*cm; FINDINGS: Bilateral periventricular chronic ischemic gliosis suggesting microvascular disease is noted. No evidence of hemorrhage, mass or edema. There are no supra or infratentorial masses. No intra or extra-axial hematomas. No shift of midline structures. The basal ganglia, thalami, brainstem are normal in appearance. The ventricular system and basal cisterns are within normal limits. The paranasal sinuses are clear. The orbits are unremarkable. No calvaria acute bony abnormality. IMPRESSION: 1. No acute intracranial abnormality. No hemorrhage, mass or edema. 2. Chronic ischemic gliosis. Electronically Signed by: Collin Jones MD. (11/09/2022 19:01:13 GLASS SMOOTHER)
--- NOTE | 2022-11-09 20:10 | XRAY ---
CLINICAL HISTORY:Trauma; COMPARISON:None; TECHNIQUES:Axial images were obtained through the cervical spine without intravenous contrast. Sagittal and coronal reconstructions were obtained. Total DLP-502.33; CTDI-23.8; FINDINGS: Reduced cervical lordotic curve suggestive of muscle spasm. Normal CT appearance of the craniocervical junction. No vertebral wedging or collapse. Preserved spinal canal with no retropulsed fragments. Degenerative osseous changes but no suspicious focal bone lesions. At C2-C3, C3-C4 there is disc bulge centrally compressing the thecal sac and indenting lateral recesses [left > right]. At C4-C5 and C5-C6, there is posterior disc bulge compressing the thecal sac and encroaching upon lateral recesses and neural foramina [left > right]. At C6-C7 there is posterior osteophyte disc complex compressing the thecal sac and encroaching upon lateral recesses and neural foramina [left > right]. Facet joint arthritic changes most prominent at C3-C4, C4-C5 levels. 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 Normal appearance of the atlantoaxial joint. Mild atlantodental arthritic changes. No paraspinal masses or collections. IMPRESSION: 1. Trauma patient with no related significant spinal injury. No acute osseous abnormality. 2. Neck muscle spasm. 3. 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 MRI is suggested for further evaluation if clinically needed. 4. Facet joint arthritic changes most prominent at C3-C4, C4-C5 levels. Electronically Signed by: Collin Jones MD. (11/09/2022 19:04:28 LADLE PATCHER)
[2022-11-09 20:54] VITALS: BP 131/50; PULSE 88
--- NOTE | 2022-11-09 22:08 | XRAY ---
CLINICAL HISTORY:Trauma Fall; COMPARISON:None; TECHNIQUES:X-rays of left humerus, AP, and lateral views; FINDINGS: Normal bone mineralization. No acute fracture is identified. Degenerative changes along the acromion process and AC joint. No lytic or sclerotic bone lesion. Normal appearing elbow joint space. Soft tissues appear unremarkable. Pacemaker devise and wires shadows are seen in the left chest area. IMPRESSION: No acute fracture or dislocation is identified. Degenerative changes along the acromion process and AC joint. DISCLAIMER: A subtle bone abnormality or fracture may not be readily apparent on x-rays, thus clinical correlation and further imaging including follow up CT, MRI, or follow up x-rays are advised as needed. Electronically Signed by: Collin Jones MD. (11/09/2022 21:04:16 ANIMAL NUTRITION TEACHER)
--- NOTE | 2022-11-09 22:14 | XRAY ---
CLINICAL HISTORY:Trauma; COMPARISON:None; TECHNIQUES:X-rays of left shoulder; AP, Y-view, and internal rotation views; FINDINGS: No evidence of fracture or dislocation is noted. Normal bone density is seen. Degenerative changes along the acromion process and acromioclavicular joint are seen. Calcification is noted at the adjacent soft tissue of the site of insertion of the supraspinatus muscle. IMPRESSION: No evidence of fracture or dislocation is noted. 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 DISCLAIMER: A subtle bone abnormality or fracture may not be readily apparent on X-rays, thus clinical correlation and further imaging including follow-up CT, MRI, or follow-up X-rays are advised as needed. Electronically Signed by: Collin Jones MD. (11/09/2022 21:09:49 RADAR ENGINEER)
[2022-11-09] MEDS ORDERED: TYLENOL 325 MG PO STA (22:35)
[2022-11-09 22:42] VITALS: O2SAT 97
[2022-11-09] MEDS ORDERED: TYLENOL 325 MG ONE (22:44)
--- NOTE | 2022-11-10 08:34 | XRAY ---
Indication: Status post fall one week ago. Comparison: November 18, 2019 Portable chest remains hyperinflated and clear. Heart not enlarged again with cardiac valve replacement. New left dual-lead pacemaker. Bony thorax intact again with osteopenia mild degenerative changes. Impression: Continued nonacute chest with chronic features.
== END 2022-11-09 23:08 | disposition home or self-care (01) ==
LOC: ED 17:24
DX: R55 Syncope and collapse (principal); S40.012A Contusion of left shoulder, initial encounter; W19.XXXA Unspecified fall, initial encounter; R79.1 Abnormal coagulation profile; T45.515A Adverse effect of anticoagulants, initial encounter; E78.5 Hyperlipidemia, unspecified; I10 Essential (primary) hypertension; Z79.01 Long term (current) use of anticoagulants; Z79.899 Other long term (current) drug therapy
CPT/HCPCS: 36415; 70450; 71045; 72125; 73030; 73060; 80053; 84484; 85025; 85610; 93005; 99284; A9270-GY

== ENCOUNTER 2022-12-15 16:38 | Observation (INO) | payer MEDICARE ==
--- NOTE | 2022-12-15 16:46 | ERPHSYRPT ---
- History of Present Illness Source: patient, family Exam Limitations: no limitations Method of Injury: other (No injury) Occurred: other Severity of Pain-Max: none Severity of Pain-Current: none Lower Extremities Pain: leg: bilateral, knee: bilateral, foot: bilateral, ankle: bilateral Modifying Factors: Improves With: other Associated Symptoms: none Hx Tetanus, Diphtheria Vaccination/Date Given: Yes Hx Influenza Vaccination/Date Given: Yes Hx Pneumococcal Vaccination/Date Given: Yes <CORDELIA PEREYRA - Last Filed: 12/15/22 18:14> <HARLEEN SALMON - Last Filed: 12/15/22 22:43> - History of Present Illness Time Seen by Provider: 12/15/22 16:46 Physician History: This is an 87-year-old white male patient who went to Dr. Boss's office this afternoon then told to come to the emergency department because of body wide swelling. The patient denies shortness of breath. Patient does have a history of coronary artery disease including cardiac stents and pacemaker placement. He has a history of hyperlipidemia, hypertension arthritis and gastroesophageal reflux disease. He is on Coumadin. Patient has had a knee replacement in the past. He is on Lasix 20 mg orally each day. Patient has no specific complaints of pain. Upon arrival to the emergency department his room air oxygenation saturation levels 96% with a heart rate in the 80s. (CORDELIA PEREYRA) Allergies/Adverse Reactions: No Known Drug Allergies Allergy (Verified 12/15/22 16:52) Home Medications: Atorvastatin Calcium 20 mg PO HS 11/18/19 [History] Hydrocodone/APAP 10/325 mg [Iron 10/325 MG Tablet] 1 ea PO BID PRN 0 11/18/19 [History] Doxazosin Mesylate [Cardura] 1 tab PO DAILY 02/22/22 [History] Famotidine 20 mg [Pepcid 20 MG] 40 mg PO HS 11/09/22 [History] Aspirin EC 81 mg [Ecotrin 81 mg] 1 tab PO DAILY 12/15/22 [History] Ciprofloxacin [Cipro 500 MG] 1 tab PO DAILY 12/15/22 [History] Finasteride 5 mg [Proscar 5 MG] 1 tab PO DAILY 12/15/22 [History] Furosemide [Lasix] 1 tab PO DAILY 12/15/22 [History] Potassium Chloride 1 tab PO BID 12/15/22 [History] Travel Risk - International Travel Have you traveled outside of the country in past 3 weeks: No - Coronavirus Screening Are you exhibiting any of the following symptoms?: No Close contact with a COVID-19 positive Pt in past 14-21 Days: No - Vaccine Status Have you recieved a Covid-19 vaccination: Yes 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 - Vaccination Dates Date of 2cond Vaccination (if applicable): 08/24/20 <CORDELIA PEREYRA - Last Filed: 12/15/22 18:14> - Review of Systems Constitutional: No Symptoms Eyes: No Symptoms Ears, Nose, & Throat: No Symptoms Respiratory: No Symptoms Cardiac: No Symptoms Abdominal/Gastrointestinal: No Symptoms Genitourinary Symptoms: No Symptoms Musculoskeletal: Other (Soft tissue swelling in all his extremities.) Skin: No Symptoms Neurological: No Symptoms Psychological: No Symptoms Endocrine: No Symptoms Hematologic/Lymphatic: No Symptoms Immunological/Allergic: No Symptoms All Other Systems: Reviewed and Negative <CORDELIA PEREYRA - Last Filed: 12/15/22 18:14> - Past Medical History Pertinent Past Medical History: Yes Neurological History: No Pertinent History ENT History: No Pertinent History Cardiac History: Coronary Artery Disease, High Cholesterol, Hypertension Respiratory History: No Pertinent History Endocrine Medical History: Hyperthyroidism Musculoskeletal History: Arthritis GI Medical History: GERD History: No Pertinent History Psycho-Social History: No Pertinent History, Other Male Reproductive Disorders: No Pertinent History Other Medical History: chronic back pain, insomnia, seasonal allergies - Past Surgical History Past Surgical History: Yes Cardiac: Cardiac Catheterization, Cardiac Stent, Pacemaker Musculoskeletal: Orthopedic Surgery Other Surgical History: knee replaced - Social History Smoking Status: Never smoker Exposure to second hand smoke: No Drug Use: none Patient Lives Alone: No <CORDELIA PEREYRA - Last Filed: 12/15/22 18:14> - Physical Exam General Appearance: no apparent distress, alert Eyes, Ears, Nose, Throat Exam: normal ENT inspection, moist mucous membranes Neck Exam: normal inspection, non-tender, supple, full range of motion Cardiovascular/Respiratory Exam: chest non-tender, no respiratory distress Gastrointestinal/Abdominal Exam: non-tender Back Exam: normal inspection, normal range of motion, No CVA tenderness Hips Exam: bilateral: non-tender, normal inspection, normal range of motion, no evidence of injury Legs Exam: bilateral leg: non-tender, no evidence of injury, swelling Knees Exam: bilateral knee: non-tender, no evidence of injury, swelling Ankle Exam: bilateral ankle: non-tender, no evidence of injury, swelling Foot Exam: bilateral foot: non-tender, no evidence of injury, swelling Skin Exam: dry (Dry flaky and priya), other SpO2 Interpretation: normal (Swelling of soft tissue in all 4 extremities) O2 Delivery: Room Air <CORDELIA PEREYRA - Last Filed: 12/15/22 18:14> - Nursing Vital Signs Nursing Vital Signs: Initial Vital Signs Blood Pressure 135/53 12/15/22 17:00 O2 Sat by Pulse Oximetry 95 12/15/22 17:00 Pain Scale Pain Intensity 0 - Course Nursing assessment & vital signs reviewed: Yes <CORDELIA PEREYRA - Last Filed: 12/15/22 18:14> - Course EKG Interpreted by Me: RATE (116, ventricular paced), NORMAL AXIS, prolonged QT interval (527), Other (ST depression in V2 and V5 otherwise no significant ST/T wave changes) - Radiology Exams Chest X-ray Interpretation: Interpreted by me, Other (venous congestion, small left sided pleural effusion) <HARLEEN SALMON - Last Filed: 12/15/22 22:43> Ordered Tests: Active Orders 24 hr Category Date Time Status Splunk Dashboard Developer STAT Care 12/15/22 17:22 Active EKG-ER Only STAT Care 12/15/22 18:42 Active Rashid [Catheter-[place] Rashid] STAT Care 12/15/22 18:45 Active IV Insertion STAT Care 12/15/22 17:22 Active Pulse Oximetry (ED) STAT Care 12/15/22 17:22 Active CHEST 1 VIEW (PORTABLE) Stat Exams 12/15/22 17:22 Taken CBC W DIFF Stat Lab 12/15/22 17:50 Completed CMP Stat Lab 12/15/22 17:50 Completed CULTURE,URINE Stat Lab 12/15/22 18:45 Received MAGNESIUM Stat Lab 12/15/22 17:50 Completed NT PRO BNPII Stat Lab 12/15/22 17:50 Completed PROTIME WITH INR Stat Lab 12/15/22 17:50 Completed TROPONIN Q4H Lab 12/15/22 18:00 Completed TROPONIN Q4H Lab 12/15/22 22:45 Ordered TROPONIN Q4H Lab 12/16/22 02:45 Ordered UA W/RFX UR CULTURE Stat Lab 12/15/22 18:45 Completed Transfer Order Routine Transfer 12/15/22 Ordered Medication Summary Discontinued Medications Generic Name Dose Route Start Last Admin Trade Name Sherri PRN Reason Stop Dose Admin Furosemide 40 mg 12/15/22 18:26 12/15/22 18:32 Furosemide 40 Mg/4 Ml Vial IV 12/15/22 18:27 40 mg STAT ONE Administration Furosemide Confirm 12/15/22 18:30 Furosemide 40 Mg/4 Ml Vial Administered 12/15/22 18:31 Dose 40 mg .ROUTE .STK-MED ONE Ceftriaxone Sodium/Dextrose 1 g in 50 mls @ 100 mls/hr 12/15/22 21:07 12/15/22 21:41 Rocephin 1 Gm-D5w 50 Ml Bag IV 12/15/22 21:36 Infused STAT STA Infusion Ceftriaxone Sodium/Dextrose Confirm 12/15/22 21:08 Rocephin 1 Gm-D5w 50 Ml Bag Administered 12/15/22 21:09 Dose 1 g in 50 mls @ ud IV .STK-MED ONE Lab/Rad Data: Laboratory Result Diagrams 12/15/22 17:50 12/15/22 17:50 Laboratory Results 12/15/22 12/15/22 12/15/22 Range/Units 18:45 18:00 17:50 WBC (4.0-10.5) x10^3/uL RBC (4.1-5.6) x10^6/uL Hgb (12.5-18.0) g/dL Hct (42-50) % MCV (78-100) fL MCH (26-32) pg MCHC (32-36) g/dL RDW (11.5-14.0) % Plt Count (150-450) x10^3/uL MPV (7.5-11.0) fL Gran % (36.0-66.0) % Immature Gran % (Auto) (0.00-0.4) % Nucleat RBC Rel Count (0.00-0.1) % Eos # (Auto) (0-0.5) x10^3/uL Immature Gran # (Auto) (0.00-0.03) x10^3u/L Absolute Lymphs (auto) (1.0-4.6) x10^3/uL Absolute Monos (auto) (0.0-1.3) x10^3/uL Absolute Nucleated RBC (0.00-0.01) x10^3u/L Lymphocytes % (24.0-44.0) % Monocytes % (0.0-12.0) % Eosinophils % (0.00-5.0) % Basophils % (0.0-0.4) % Absolute Granulocytes (1.4-6.9) x10^3/uL Basophils # (0-0.4) x10^3/uL PT 11.9 (9.4-12.5) SECONDS INR 1.10 (0.8-3.0) Sodium (137-145) mmol/L Potassium (3.5-5.1) mmol/L Chloride (98-107) mmol/L Carbon Dioxide (22-30) mmol/L Anion Gap (5-15) MEQ/L BUN (9-20) mg/dL Creatinine (0.66-1.25) mg/dL Estimated GFR ML/MIN Glucose (74-106) mg/dL Calcium (8.4-10.2) mg/dL Magnesium (1.6-2.3) mg/dL Total Bilirubin (0.2-1.3) mg/dL AST (17-59) U/L ALT (0-50) U/L Alkaline Phosphatase (38-126) U/L Troponin I 0.055 H* (0.000-0.034) ng/mL NT-Pro-B Natriuret Pep (<300) pg/mL Serum Total Protein (6.3-8.2) g/dL Albumin (3.5-5.0) g/dL Urine Color Dark Yellow (Yellow) Urine Appearance Cloudy A (Clear) Urine pH 5.5 (4.6-8.0) Ur Specific [place] 1.025 (1.005-1.030) Urine Protein 300 A (Negative) Urine Glucose (UA) Negative (Negative) mg/dL Urine Ketones Negative (Negative) Urine Blood Large A (Negative) Urine Nitrite Negative (Negative) Urine Bilirubin Negative (Negative) Urine Urobilinogen 1.0 A (0.2) mg/dL Ur Leukocyte Esterase Small A (Negative) U Hyaline Cast (Auto) 6-10 A (0-2) /LPF Urine Microscopic RBC 21-50 A (0-5) /HPF Urine Microscopic WBC 11-20 A (0-5) /HPF Ur Epithelial Cells None Seen (None Seen) /HPF Urine Bacteria Rare A (None Seen) /HPF Urine Mucus Few A (NEGATIVE) /HPF Urine Yeast (Budding) Rare A (None Seen) /HPF Urine Culture Reflexed NO (NO) 12/15/22 12/15/22 Range/Units 17:50 17:50 WBC 8.7 (4.0-10.5) x10^3/uL RBC 3.08 L (4.1-5.6) x10^6/uL Hgb 8.8 L (12.5-18.0) g/dL Hct 28.3 L (42-50) % MCV 91.9 (78-100) fL MCH 28.6 (26-32) pg MCHC 31.1 L (32-36) g/dL RDW 15.1 H (11.5-14.0) % Plt Count 151 (150-450) x10^3/uL MPV 10.5 (7.5-11.0) fL Gran % 80.7 H (36.0-66.0) % Immature Gran % (Auto) 0.3 (0.00-0.4) % Nucleat RBC Rel Count 0.0 (0.00-0.1) % Eos # (Auto) 0.01 (0-0.5) x10^3/uL Immature Gran # (Auto) 0.03 (0.00-0.03) x10^3u/L Absolute Lymphs (auto) 0.82 L (1.0-4.6) x10^3/uL Absolute Monos (auto) 0.80 (0.0-1.3) x10^3/uL Absolute Nucleated RBC 0.00 (0.00-0.01) x10^3u/L Lymphocytes % 9.5 L (24.0-44.0) % Monocytes % 9.2 (0.0-12.0) % Eosinophils % 0.1 (0.00-5.0) % Basophils % 0.2 (0.0-0.4) % Absolute Granulocytes 6.99 H (1.4-6.9) x10^3/uL Basophils # 0.02 (0-0.4) x10^3/uL PT (9.4-12.5) SECONDS INR (0.8-3.0) Sodium 135 L (137-145) mmol/L Potassium 4.0 (3.5-5.1) mmol/L Chloride 98 (98-107) mmol/L Carbon Dioxide 33 H (22-30) mmol/L Anion Gap 7.8 (5-15) MEQ/L BUN 25 H (9-20) mg/dL Creatinine 0.71 (0.66-1.25) mg/dL Estimated GFR > 60.0 ML/MIN Glucose 111 H (74-106) mg/dL Calcium 8.0 L (8.4-10.2) mg/dL Magnesium 1.8 (1.6-2.3) mg/dL Total Bilirubin 0.90 (0.2-1.3) mg/dL AST 42 (17-59) U/L ALT 27 (0-50) U/L Alkaline Phosphatase 112 (38-126) U/L Troponin I (0.000-0.034) ng/mL NT-Pro-B Natriuret Pep 67820 (<300) pg/mL Serum Total Protein 6.8 (6.3-8.2) g/dL Albumin 2.5 L (3.5-5.0) g/dL Urine Color (Yellow) Urine Appearance (Clear) Urine pH (4.6-8.0) Ur Specific [place] (1.005-1.030) Urine Protein (Negative) Urine Glucose (UA) (Negative) mg/dL Urine Ketones (Negative) Urine Blood (Negative) Urine Nitrite (Negative) Urine Bilirubin (Negative) Urine Urobilinogen (0.2) mg/dL Ur Leukocyte Esterase (Negative) U Hyaline Cast (Auto) (0-2) /LPF Urine Microscopic RBC (0-5) /HPF Urine Microscopic WBC (0-5) /HPF Ur Epithelial Cells (None Seen) /HPF Urine Bacteria (None Seen) /HPF Urine Mucus (NEGATIVE) /HPF Urine Yeast (Budding) (None Seen) /HPF Urine Culture Reflexed (NO) - Progress Progress: improved, re-examined Counseled pt/family regarding: lab results, diagnosis, rad results <CORDELIA PEREYRA - Last Filed: 12/15/22 18:14> - Progress Discussed with .: Other (Jose Roberto) <HARLEEN SALMON - Last Filed: 12/15/22 22:43> - Progress Progress Note: 12/15/22 18:14 Chest x-ray was interpreted by me. I do not appreciate an infiltrate. However there appears to be a small left pleural effusion present. (CORDELIA PEREYRA) Assumed care from Dr. Pereyra at 1900. EKG showed heart rate of 116 bpm, ventricular paced, there was ST depression in V2 and V5 but no contiguous leads noted. 12/15/22 19:40 12/15/22 20:37 Initial troponin was mildly elevated at 0.055. I went in to evaluate the patient who says he is feeling much better. He denies any current chest pain or shortness of breath. I discussed transfer to another facility in case the patient were to need further intervention and the patient was hesitant without talking to his melter operator Dr. Capps at [facility] in [place]. I did discuss admission here and if patient was not interested in intervention, but patient seems to not have capacity to make this decision at this time. The patient tried to reach out to his son as well as our nursing staff with no success at this time. 12/15/22 21:19 I spoke with the patient's son Yves AnthonyJr., who is the patient's medical power of energy attorney. I discussed the results of today's evaluation and potential options for treatment. He would like the patient to be transferred to [facility] in [place] where his melter operator Dr. Capps is located. I did find out that the patient had a valve replacement a few years back, but the son was unsure which valve was replaced. The patient has relationship with Dr. Capps and was going to reach out to him personally to see if we could get in contact with him. After I hear back from the son I will initiate transfer to [facility] in [place]. 12/15/22 22:[address] Cid through the [facility] who felt like the patient did not need any intervention at this time and the elevated troponin is just secondary to the heart failure and TAVR. She recommended admission at our facility for IV diuresis and to trend the troponin. If the troponin elevated to a concerning level she was happy to accept the patient for admission at that time. I spoke with the patient's son who is his power of energy attorney who agreed with this plan so I will initiate admission through our telehospitalist service. 12/15/22 22:[address] Gutiérrez who accepts admission for observation at 2226. (HARLEEN SALMON) Medical Desision Making - Discussion of managment Care discussed with:: specialist Reviewed:: Test results Agreed on:: Treatment plan - Diagnostic Testing Diagnostic test were ordered, analyzed, and reviewed by me: Yes Radiological Interpretation: Interpreted by me, Reviewed by me - Risk of complications The pt has a mod risk of morbidity or mortality based on: Need for prescription drug management The pt has a high risk of morbidity or mortality based on: Decision regarding hospitilization or escalation of hosp level of care <HARLEEN SALMON - Last Filed: 12/15/22 22:43> <CORDELIA PEREYRA - Last Filed: 12/15/22 18:14> - Departure Departure Disposition: Observation Critical Care Time: No <HARLEEN SALMON - Last Filed: 12/15/22 22:43> - Departure Clinical Impression: S/P TAVR (transcatheter aortic valve replacement), Acute exacerbation of CHF (congestive heart failure), Anemia, Pacemaker, UTI (urinary tract infection), Elevated troponin I level Condition: Stable Referrals: MULUGETA BOSS MD [Primary Care Provider] - Follow up/PCP as directed Instructions: Heart Failure, Heart Failure, Adult (DC)
[2022-12-15 17:54] LABS: Absolute Neutrophil Ct (ANC) 6.99 x10^3/uL (1.4-6.9); BASOPHIL % 0.2 % (0.0-0.4); Basophil (Absolute #) 0.02 x10^3/uL (0-0.4); Eosinophil % 0.1 % (0.00-5.0); Eosinophil (Absolute #) 0.01 x10^3/uL (0-0.5); Hematocrit 28.3 % (42-50); Hemoglobin 8.8 g/dL (12.5-18.0); IMMATURE GRAN # 0.03 x10^3u/L (0.00-0.03); IMMATURE GRAN % 0.3 % (0.00-0.4); Lymphocyte (Absolute #) 0.82 x10^3/uL (1.0-4.6); Lymphocytes % 9.5 % (24.0-44.0); Mean Cell Volume 91.9 fL (78-100); Mean Corpuscular Hemoglobin 28.6 pg (26-32); Mean Corpuscular Hgb Concent. 31.1 g/dL (32-36); Mean Platelet Volume 10.5 fL (7.5-11.0); Monocytes % 9.2 % (0.0-12.0); Neutrophil % 80.7 % (36.0-66.0); Platelet Count 151 x10^3/uL (150-450); Red Blood Count 3.08 x10^6/uL (4.1-5.6); Red Cell Distribution Width 15.1 % (11.5-14.0); White Blood Count 8.7 x10^3/uL (4.0-10.5)
[2022-12-15 18:08] LABS: INR 1.1 (0.8-3.0); PROTIME 11.9 SECONDS (9.4-12.5)
[2022-12-15 18:21] LABS: ALBUMIN 2.5 g/dL (3.5-5.0); ALKALINE PHOSPHATASE 112 U/L (38-126); ANION GAP 7.8 MEQ/L (5-15); BLOOD UREA NITROGEN 25 mg/dL (9-20); CHLORIDE 98 mmol/L (98-107); Carbon Dioxide 33 mmol/L (22-30); Creatinine 1 0.71 mg/dL (0.66-1.25); EST GLOMERULAR FILTRATION RATE > 60.0 ML/MIN; Glucose 111 mg/dL (74-106); MAGNESIUM 1.8 mg/dL (1.6-2.3); NT PRO BNPII 10800 pg/mL (<300); SGOT/AST 42 U/L (17-59); SGPT/ALT 27 U/L (0-50); SODIUM 135 mmol/L (137-145); Total Protein 6.8 g/dL (6.3-8.2)
[2022-12-15] MEDS ORDERED: Lasix 40 MG/4 ML IV ONE (18:26)
[2022-12-15] MEDS ORDERED: Lasix 40 MG/4 ML ONE (18:30)
[2022-12-15 19:17] LABS: Appearance Cloudy (Clear); Bilirubin Negative (Negative); Blood Large (Negative); Epithelial Cells None Seen /HPF (None Seen); Glucose, Urine Negative (Negative); Ketones Negative (Negative); Leukocyte Esterase Small (Negative); Mucus Few /HPF (NEGATIVE); Nitrite Negative (Negative); Ph 5.5 (4.6-8.0); Protein,Urine Dip 300 (Negative); RBC 21-50 /HPF (0-5); Specific Gravity 1.025 (1.005-1.030)
[2022-12-15 19:18] LABS: ADD URINE CULTURE? NO (NO); Bacteria Rare /HPF (None Seen); Budding Yeast Rare /HPF (None Seen)
[2022-12-15] MEDS ORDERED: ROCEPHIN 1 Gm-D5w 50 ml Bag** 1 G/50 ML IVPB IV STA (21:07)
[2022-12-15] MEDS ORDERED: ROCEPHIN 1 Gm-D5w 50 ml Bag** 1 G/50 ML IVPB IV ONE (21:08)
[2022-12-16] MEDS: Pepcid 20 MG PO SCH ×2 (00:34→23:40)
[2022-12-16] MEDS: ZOCOR 20MG PO SCH ×2 (00:34→23:51)
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
[2022-12-16 02:11] LABS: Hematocrit 25.3 % (42-50); Mean Cell Volume 91.3 fL (78-100); Mean Corpuscular Hemoglobin 28.9 pg (26-32); Mean Corpuscular Hgb Concent. 31.6 g/dL (32-36); Mean Platelet Volume 10.5 fL (7.5-11.0); Platelet Count 143 x10^3/uL (150-450); Red Blood Count 2.77 x10^6/uL (4.1-5.6); White Blood Count 7.7 x10^3/uL (4.0-10.5)
[2022-12-16 02:25] LABS: BLOOD UREA NITROGEN 23 mg/dL (9-20); CHLORIDE 97 mmol/L (98-107); Calcium 7.6 mg/dL (8.4-10.2); Carbon Dioxide 33 mmol/L (22-30); Creatinine 1 0.72 mg/dL (0.66-1.25); EST GLOMERULAR FILTRATION RATE > 60.0 ML/MIN; Glucose 129 mg/dL (74-106); Potassium 3.5 mmol/L (3.5-5.1); SODIUM 134 mmol/L (137-145)
[2022-12-16] MEDS ORDERED: Cipro 500 MG PO SCH (07:30)
[2022-12-16] MEDS: HYDROCODONE-ACETAMIN 10-325 MG PO PRN ×2 (08:13→19:55)
[2022-12-16] MEDS ORDERED: DOXAZOSIN MESYLATE 4 MG PO SCH (10:00)
[2022-12-16] MEDS: ECOTRIN 81 MG PO SCH (10:40)
[2022-12-16] MEDS: CARDURA 2 MG PO SCH (10:40)
[2022-12-16] MEDS: Klor Con PO SCH ×2 (10:40→23:52)
[2022-12-16] MEDS: Flomax 0.4 MG PO SCH (10:40)
[2022-12-16] MEDS: Proscar 5 MG PO SCH (10:41)
[2022-12-16] MEDS: Lasix 40 MG/4 ML IV SCH ×2 (10:41→17:06)
[2022-12-16 10:43] LABS: Absolute Neutrophil Ct (ANC) 6.02 x10^3/uL (1.4-6.9); BASOPHIL % 0.3 % (0.0-0.4); Basophil (Absolute #) 0.02 x10^3/uL (0-0.4); Eosinophil % 0.1 % (0.00-5.0); Eosinophil (Absolute #) 0.01 x10^3/uL (0-0.5); IMMATURE GRAN # 0.05 x10^3u/L (0.00-0.03); IMMATURE GRAN % 0.7 % (0.00-0.4); Lymphocyte (Absolute #) 0.78 x10^3/uL (1.0-4.6); Lymphocytes % 10.2 % (24.0-44.0); Monocyte (Absolute #) 0.74 x10^3/uL (0.0-1.3); Monocytes % 9.7 % (0.0-12.0)
[2022-12-16] MEDS: Docusate Sodium 100 MG PO SCH ×2 (10:47→23:51)
--- NOTE | 2022-12-16 11:11 | XRAY ---
CLINICAL HISTORY:Shortness of air. COMPARISON:To previous dated 11/09/2022. TECHNIQUES:X-ray of the chest, AP portable view. FINDINGS: Newly seen left pleural effusion. Newly seen left parahilar opacity seen. Mild cardiomegaly. Normal configuration of the mediastinum. The ayan are normal in size and position. The bony thorax is unremarkable. Right costophrenic angle is clear. Still seen double lead pacemaker seen. Metallic mitral replacement. IMPRESSION: 1. Newly seen left pleural effusion. 2. Newely seen left parahillar opacity seen. 3. Mild cardiomegaly. Electronically Signed by: Collin Jones MD. ( 12/16/2022 10:07:16 DIRECTOR TEEN POST)
--- NOTE | 2022-12-16 16:26 | PCM.NOTE ---
Date and Time: 12/16/22 1620 Subjective Assessment: Edema has improved with diuresis. Does not report dyspnea. No new complaints. Denies fevers, chills, dysuria. The entirety of this encounter was performed via telemedicine. The patient consented to this telemedicine encounter. - Review of Systems Constitutional: No Symptoms Eyes: No Symptoms Ears, Nose, & Throat: No Symptoms Respiratory: No Symptoms Cardiac: Edema Abdominal/Gastrointestinal: No Symptoms Genitourinary Symptoms: No Symptoms Musculoskeletal: No Symptoms Skin: No Symptoms Neurological: No Symptoms Psychological: No Symptoms Endocrine: No Symptoms Hematologic/Lymphatic: No Symptoms Immunological/Allergic: No Symptoms All Other Systems: Reviewed and Negative Objective Exam General Appearance: no apparent distress, mild distress Neurologic Exam: alert, oriented x 3, cooperative, skin toggler II-XII nml as tested, normal mood/affect, nml cerebellar function Skin Exam: normal color Eye Exam: PERRL, EOMI, eyes nml inspection Neck Exam: normal inspection Respiratory Exam: normal breath sounds Cardiovascular Exam: regular rate/rhythm, normal heart sounds Gastrointestinal/Abdomen Exam: soft, normal bowel sounds Extremity Exam: normal range of motion, swelling (bilateral leg edema improved) OBJECTIVE DATA Vital Signs: Vital Signs - 24 hr Temp Pulse Resp BP BP Pulse Ox 12/16/22 16:00 98.2 F 71 19 112/54 95 12/16/22 12:00 97.9 F 81 19 109/57 94 L 12/16/22 07:59 99 F 94 H 19 104/55 94 L 12/16/22 04:00 99.5 F 85 16 140/60 94 L 12/15/22 23:43 97.7 F 90 16 148/67 92 L 12/15/22 22:58 97.7 F 90 16 148/67 92 L 12/15/22 19:30 83 19 116/50 93 L 12/15/22 19:00 99 H 19 142/51 96 12/15/22 18:30 84 23 138/51 95 12/15/22 18:00 82 19 133/46 95 12/15/22 17:32 96 12/15/22 17:30 112 H 19 136/89 96 12/15/22 17:01 98.8 F 90 22 134/50 97 12/15/22 17:00 135/53 95 Pain Assessment - Last Documented Pain Intensity 2 Pain Scale Used 0-10 Pain Scale Intake and Output: Intake & Output 12/14/22 12/15/22 12/16/22 12/17/22 11:59 11:59 11:59 11:59 Intake Total 480 Output Total 1250 600 Balance -770 -600 Weight 64.2 kg Lab Results: Lab Results-Last 24 Hours 12/15/22 12/15/22 12/15/22 Range/Units 17:50 17:50 17:50 WBC 8.7 (4.0-10.5) x10^3/uL RBC 3.08 L (4.1-5.6) x10^6/uL Hgb 8.8 L (12.5-18.0) g/dL Hct 28.3 L (42-50) % MCV 91.9 (78-100) fL MCH 28.6 (26-32) pg MCHC 31.1 L (32-36) g/dL RDW 15.1 H (11.5-14.0) % Plt Count 151 (150-450) x10^3/uL MPV 10.5 (7.5-11.0) fL Gran % 80.7 H (36.0-66.0) % Immature Gran % (Auto) 0.3 (0.00-0.4) % Nucleat RBC Rel Count 0.0 (0.00-0.1) % Eos # (Auto) 0.01 (0-0.5) x10^3/uL Immature Gran # (Auto) 0.03 (0.00-0.03) x10^3u/L Absolute Lymphs (auto) 0.82 L (1.0-4.6) x10^3/uL Absolute Monos (auto) 0.80 (0.0-1.3) x10^3/uL Absolute Nucleated RBC 0.00 (0.00-0.01) x10^3u/L Lymphocytes % 9.5 L (24.0-44.0) % Monocytes % 9.2 (0.0-12.0) % Eosinophils % 0.1 (0.00-5.0) % Basophils % 0.2 (0.0-0.4) % Absolute Granulocytes 6.99 H (1.4-6.9) x10^3/uL Basophils # 0.02 (0-0.4) x10^3/uL PT 11.9 (9.4-12.5) SECONDS INR 1.10 (0.8-3.0) Sodium 135 L (137-145) mmol/L Potassium 4.0 (3.5-5.1) mmol/L Chloride 98 (98-107) mmol/L Carbon Dioxide 33 H (22-30) mmol/L Anion Gap 7.8 (5-15) MEQ/L BUN 25 H (9-20) mg/dL Creatinine 0.71 (0.66-1.25) mg/dL Estimated GFR > 60.0 ML/MIN Glucose 111 H (74-106) mg/dL Calcium 8.0 L (8.4-10.2) mg/dL Magnesium 1.8 (1.6-2.3) mg/dL Total Bilirubin 0.90 (0.2-1.3) mg/dL AST 42 (17-59) U/L ALT 27 (0-50) U/L Alkaline Phosphatase 112 (38-126) U/L Troponin I (0.000-0.034) ng/mL NT-Pro-B Natriuret Pep 94541 (<300) pg/mL Serum Total Protein 6.8 (6.3-8.2) g/dL Albumin 2.5 L (3.5-5.0) g/dL Urine Color (Yellow) Urine Appearance (Clear) Urine pH (4.6-8.0) Ur Specific [place] (1.005-1.030) Urine Protein (Negative) Urine Glucose (UA) (Negative) mg/dL Urine Ketones (Negative) Urine Blood (Negative) Urine Nitrite (Negative) Urine Bilirubin (Negative) Urine Urobilinogen (0.2) mg/dL Ur Leukocyte Esterase (Negative) U Hyaline Cast (Auto) (0-2) /LPF Urine Microscopic RBC (0-5) /HPF Urine Microscopic WBC (0-5) /HPF Ur Epithelial Cells (None Seen) /HPF Urine Bacteria (None Seen) /HPF Urine Mucus (NEGATIVE) /HPF Urine Yeast (Budding) (None Seen) /HPF Urine Culture Reflexed (NO) 12/15/22 12/15/22 12/15/22 Range/Units 18:00 18:45 23:15 WBC (4.0-10.5) x10^3/uL RBC (4.1-5.6) x10^6/uL Hgb (12.5-18.0) g/dL Hct (42-50) % MCV (78-100) fL MCH (26-32) pg MCHC (32-36) g/dL RDW (11.5-14.0) % Plt Count (150-450) x10^3/uL MPV (7.5-11.0) fL Gran % (36.0-66.0) % Immature Gran % (Auto) (0.00-0.4) % Nucleat RBC Rel Count (0.00-0.1) % Eos # (Auto) (0-0.5) x10^3/uL Immature Gran # (Auto) (0.00-0.03) x10^3u/L Absolute Lymphs (auto) (1.0-4.6) x10^3/uL Absolute Monos (auto) (0.0-1.3) x10^3/uL Absolute Nucleated RBC (0.00-0.01) x10^3u/L Lymphocytes % (24.0-44.0) % Monocytes % (0.0-12.0) % Eosinophils % (0.00-5.0) % Basophils % (0.0-0.4) % Absolute Granulocytes (1.4-6.9) x10^3/uL Basophils # (0-0.4) x10^3/uL PT (9.4-12.5) SECONDS INR (0.8-3.0) Sodium (137-145) mmol/L Potassium (3.5-5.1) mmol/L Chloride (98-107) mmol/L Carbon Dioxide (22-30) mmol/L Anion Gap (5-15) MEQ/L BUN (9-20) mg/dL Creatinine (0.66-1.25) mg/dL Estimated GFR ML/MIN Glucose (74-106) mg/dL Calcium (8.4-10.2) mg/dL Magnesium (1.6-2.3) mg/dL Total Bilirubin (0.2-1.3) mg/dL AST (17-59) U/L ALT (0-50) U/L Alkaline Phosphatase (38-126) U/L Troponin I 0.055 H* 0.077 H* (0.000-0.034) ng/mL NT-Pro-B Natriuret Pep (<300) pg/mL Serum Total Protein (6.3-8.2) g/dL Albumin (3.5-5.0) g/dL Urine Color Dark Yellow (Yellow) Urine Appearance Cloudy A (Clear) Urine pH 5.5 (4.6-8.0) Ur Specific [place] 1.025 (1.005-1.030) Urine Protein 300 A (Negative) Urine Glucose (UA) Negative (Negative) mg/dL Urine Ketones Negative (Negative) Urine Blood Large A (Negative) Urine Nitrite Negative (Negative) Urine Bilirubin Negative (Negative) Urine Urobilinogen 1.0 A (0.2) mg/dL Ur Leukocyte Esterase Small A (Negative) U Hyaline Cast (Auto) 6-10 A (0-2) /LPF Urine Microscopic RBC 21-50 A (0-5) /HPF Urine Microscopic WBC 11-20 A (0-5) /HPF Ur Epithelial Cells None Seen (None Seen) /HPF Urine Bacteria Rare A (None Seen) /HPF Urine Mucus Few A (NEGATIVE) /HPF Urine Yeast (Budding) Rare A (None Seen) /HPF Urine Culture Reflexed NO (NO) 12/16/22 12/16/22 12/16/22 Range/Units 02:05 02:05 02:05 WBC 7.7 (4.0-10.5) x10^3/uL RBC 2.77 L (4.1-5.6) x10^6/uL Hgb 8.0 L (12.5-18.0) g/dL Hct 25.3 L (42-50) % MCV 91.3 (78-100) fL MCH 28.9 (26-32) pg MCHC 31.6 L (32-36) g/dL RDW 15.0 H (11.5-14.0) % Plt Count 143 L (150-450) x10^3/uL MPV 10.5 (7.5-11.0) fL Gran % 79.0 H (36.0-66.0) % Immature Gran % (Auto) 0.7 H (0.00-0.4) % Nucleat RBC Rel Count 0.0 (0.00-0.1) % Eos # (Auto) 0.01 (0-0.5) x10^3/uL Immature Gran # (Auto) 0.05 H (0.00-0.03) x10^3u/L Absolute Lymphs (auto) 0.78 L (1.0-4.6) x10^3/uL Absolute Monos (auto) 0.74 (0.0-1.3) x10^3/uL Absolute Nucleated RBC 0.00 (0.00-0.01) x10^3u/L Lymphocytes % 10.2 L (24.0-44.0) % Monocytes % 9.7 (0.0-12.0) % Eosinophils % 0.1 (0.00-5.0) % Basophils % 0.3 (0.0-0.4) % Absolute Granulocytes 6.02 (1.4-6.9) x10^3/uL Basophils # 0.02 (0-0.4) x10^3/uL PT (9.4-12.5) SECONDS INR (0.8-3.0) Sodium 134 L (137-145) mmol/L Potassium 3.5 (3.5-5.1) mmol/L Chloride 97 L (98-107) mmol/L Carbon Dioxide 33 H (22-30) mmol/L Anion Gap 7.0 (5-15) MEQ/L BUN 23 H (9-20) mg/dL Creatinine 0.72 (0.66-1.25) mg/dL Estimated GFR > 60.0 ML/MIN Glucose 129 H (74-106) mg/dL Calcium 7.6 L (8.4-10.2) mg/dL Magnesium (1.6-2.3) mg/dL Total Bilirubin (0.2-1.3) mg/dL AST (17-59) U/L ALT (0-50) U/L Alkaline Phosphatase (38-126) U/L Troponin I 0.080 H* (0.000-0.034) ng/mL NT-Pro-B Natriuret Pep (<300) pg/mL Serum Total Protein (6.3-8.2) g/dL Albumin (3.5-5.0) g/dL Urine Color (Yellow) Urine Appearance (Clear) Urine pH (4.6-8.0) Ur Specific [place] (1.005-1.030) Urine Protein (Negative) Urine Glucose (UA) (Negative) mg/dL Urine Ketones (Negative) Urine Blood (Negative) Urine Nitrite (Negative) Urine Bilirubin (Negative) Urine Urobilinogen (0.2) mg/dL Ur Leukocyte Esterase (Negative) U Hyaline Cast (Auto) (0-2) /LPF Urine Microscopic RBC (0-5) /HPF Urine Microscopic WBC (0-5) /HPF Ur Epithelial Cells (None Seen) /HPF Urine Bacteria (None Seen) /HPF Urine Mucus (NEGATIVE) /HPF Urine Yeast (Budding) (None Seen) /HPF Urine Culture Reflexed (NO) 12/16/22 Range/Units 08:50 WBC (4.0-10.5) x10^3/uL RBC (4.1-5.6) x10^6/uL Hgb (12.5-18.0) g/dL Hct (42-50) % MCV (78-100) fL MCH (26-32) pg MCHC (32-36) g/dL RDW (11.5-14.0) % Plt Count (150-450) x10^3/uL MPV (7.5-11.0) fL Gran % (36.0-66.0) % Immature Gran % (Auto) (0.00-0.4) % Nucleat RBC Rel Count (0.00-0.1) % Eos # (Auto) (0-0.5) x10^3/uL Immature Gran # (Auto) (0.00-0.03) x10^3u/L Absolute Lymphs (auto) (1.0-4.6) x10^3/uL Absolute Monos (auto) (0.0-1.3) x10^3/uL Absolute Nucleated RBC (0.00-0.01) x10^3u/L Lymphocytes % (24.0-44.0) % Monocytes % (0.0-12.0) % Eosinophils % (0.00-5.0) % Basophils % (0.0-0.4) % Absolute Granulocytes (1.4-6.9) x10^3/uL Basophils # (0-0.4) x10^3/uL PT (9.4-12.5) SECONDS INR (0.8-3.0) Sodium (137-145) mmol/L Potassium (3.5-5.1) mmol/L Chloride (98-107) mmol/L Carbon Dioxide (22-30) mmol/L Anion Gap (5-15) MEQ/L BUN (9-20) mg/dL Creatinine (0.66-1.25) mg/dL Estimated GFR ML/MIN Glucose (74-106) mg/dL Calcium (8.4-10.2) mg/dL Magnesium (1.6-2.3) mg/dL Total Bilirubin (0.2-1.3) mg/dL AST (17-59) U/L ALT (0-50) U/L Alkaline Phosphatase (38-126) U/L Troponin I 0.093 H* (0.000-0.034) ng/mL NT-Pro-B Natriuret Pep (<300) pg/mL Serum Total Protein (6.3-8.2) g/dL Albumin (3.5-5.0) g/dL Urine Color (Yellow) Urine Appearance (Clear) Urine pH (4.6-8.0) Ur Specific [place] (1.005-1.030) Urine Protein (Negative) Urine Glucose (UA) (Negative) mg/dL Urine Ketones (Negative) Urine Blood (Negative) Urine Nitrite (Negative) Urine Bilirubin (Negative) Urine Urobilinogen (0.2) mg/dL Ur Leukocyte Esterase (Negative) U Hyaline Cast (Auto) (0-2) /LPF Urine Microscopic RBC (0-5) /HPF Urine Microscopic WBC (0-5) /HPF Ur Epithelial Cells (None Seen) /HPF Urine Bacteria (None Seen) /HPF Urine Mucus (NEGATIVE) /HPF Urine Yeast (Budding) (None Seen) /HPF Urine Culture Reflexed (NO) Radiology Exams: Radiology Procedures Category Date Time Status CHEST 1 VIEW (PORTABLE) Stat Exams 12/15/22 17:22 Completed ECHO W/2D AND DOPPLER [US] Routine Exams 12/16/22 22:58 Taken Assessment/Plan (1) Acute exacerbation of CHF (congestive heart failure) Current Visit: Yes Status: Acute Assessment & Plan: Responding well to diuresis. Troponin flattened at 0.093. Denies chest pain. On telemetry. Attempted to contact Dr. Herb Capps, but this physician has retired. The patient was last seen at the cardiology clinic in January 2022 (per staff members at contact number [phone]). Continue IV Lasix. Follow up echocardiogram Code(s): I50.9 - HEART FAILURE, UNSPECIFIED (2) UTI (urinary tract infection) Current Visit: Yes Status: Acute Assessment & Plan: Continue antibiotics. F/U Cx. Has been on ciprofloxacin for the last few weeks. Code(s): N39.0 - URINARY TRACT INFECTION, SITE NOT SPECIFIED (3) Anemia Current Visit: Yes Status: Acute Assessment & Plan: Monitor counts. No siena bleeding at this time. Code(s): D64.9 - ANEMIA, UNSPECIFIED (4) Elevated troponin I level Current Visit: Yes Status: Acute Assessment & Plan: As above, monitor on tele. F/U ECHO. Code(s): R77.8 - OTHER SPECIFIED ABNORMALITIES OF PLASMA PROTEINS
[2022-12-16] MEDS ORDERED: ROCEPHIN 1 Gm-D5w 50 ml Bag** 1 G/50 ML IVPB IV SCH (22:00)
[2022-12-17 05:28] LABS: Hematocrit 23.6 % (42-50); Hemoglobin 7.4 g/dL (12.5-18.0); Mean Cell Volume 91.5 fL (78-100); Mean Corpuscular Hemoglobin 28.7 pg (26-32); Mean Corpuscular Hgb Concent. 31.4 g/dL (32-36); Mean Platelet Volume 10.9 fL (7.5-11.0); Platelet Count 139 x10^3/uL (150-450); Red Blood Count 2.58 x10^6/uL (4.1-5.6); Red Cell Distribution Width 15.1 % (11.5-14.0); White Blood Count 6.5 x10^3/uL (4.0-10.5)
[2022-12-17 05:49] LABS: ANION GAP 5.8 MEQ/L (5-15); BLOOD UREA NITROGEN 28 mg/dL (9-20); CHLORIDE 96 mmol/L (98-107); Calcium 7.3 mg/dL (8.4-10.2); Carbon Dioxide 35 mmol/L (22-30); Creatinine 1 0.73 mg/dL (0.66-1.25); EST GLOMERULAR FILTRATION RATE > 60.0 ML/MIN; Glucose 114 mg/dL (74-106); Potassium 3.5 mmol/L (3.5-5.1); SODIUM 132 mmol/L (137-145)
[2022-12-17] MEDS ORDERED: Levofloxacin 500 MG Tablet PO SCH (10:00)
[2022-12-17] MEDS: ECOTRIN 81 MG PO SCH (11:11)
[2022-12-17] MEDS: Lasix 40 MG/4 ML IV SCH (11:11)
[2022-12-17] MEDS: Flomax 0.4 MG PO SCH (11:11)
[2022-12-17] MEDS: Docusate Sodium 100 MG PO SCH (11:11)
[2022-12-17] MEDS: CARDURA 2 MG PO SCH (11:11)
[2022-12-17] MEDS: Proscar 5 MG PO SCH (11:12)
[2022-12-17] MEDS: Klor Con PO SCH (11:12)
[2022-12-17] MEDS: HYDROCODONE-ACETAMIN 10-325 MG PO PRN (13:35)
--- NOTE | 2022-12-17 13:59 | ECHO ---
Transthoracic echocardiographic examination and color Doppler was done on 12/16/2022. INDICATION: Congestive heart failure. IMPRESSION: 1) NO REGIONAL WALL MOTION ABNORMALITY. ESTIMATED GLOBAL LEFT VENTRICULAR EJECTION FRACTION OF ABOUT 55 TO 60%. 2) MILD MITRAL REGURGITATION. 3) MILD TO MODERATE TRICUSPID REGURGITATION. RIGHT VENTRICULAR SYSTOLIC PRESSURE OF 34 MM OF MERCURY. 4) AORTIC VALVE SCLEROSIS WITH PEAK TRANSAORTIC GRADIENT OF 20 MM OF MERCURY AND MEAN GRADIENT OF 13 MM OF MERCURY. 5) MILD AORTIC REGURGITATION. 6) LEFT ATRIAL ENLARGEMENT. 7) LEFT VENTRICULAR HYPERTROPHY. 8) MILD PULMONIC INSUFFICIENCY. The left ventricle is visualized and demonstrated adequate motion of all the segments. Estimated global left ventricular ejection fraction of about 55 to 60%. There is left ventricular hypertrophy. The mitral valve is seen and this opens adequately. There is mild mitral regurgitation. Left atrium is mildly enlarged. Tissue Doppler study of the lateral mitral annulus suggestive of left ventricle diastolic dysfunction. The aortic valve is calcified. The peak gradient across the aortic valve is 22 mm of [place] with a mean gradient of 13. There is mild aortic regurgitation. The right side chambers are mildly dilated. There is moderate tricuspid regurgitation. The right ventricular systolic pressure of 34 mm of [place].
--- NOTE | 2022-12-17 15:31 | PCM.DS ---
Discharge Summary Date of Admission: 12/15/22 22:56 Admitting Physician: DOUG RETANA MD Primary Care Provider: KARYN,MULUGETA Allergies Allergies thiopental Allergy (Verified 12/15/22 23:52) Hospital Summary - Hospital Course Hospital Course: Initially admitted for CHF exacerbation and UTI. Diuresis has been effective with significant lower extremity edema decrease. Urine culture was negative, so there is no need for further acute antibiotics (can continue the outpatient ciprofloxacin which had been previously prescribed). The patient will be discharged to home with hospice and the Rashid in place (to be managed by hospice). Plan will be to increase the home lasix dose from 20 mg daily to 40mg daily for 1 week, and then resume his usual home dose with close monitoring. The patient was seen and examined via telemedicine. The entirety of this encounter was performed via telemedicine. The patient consented to this telemedicine encounter. - Vitals & Intake/Output Vital Signs: Vital Signs Temperature 97.7 F 12/17/22 11:53 Pulse Rate 89 12/17/22 11:53 Respiratory Rate 16 12/17/22 11:53 Blood Pressure 90/53 12/17/22 11:53 O2 Sat by Pulse Oximetry 93 L 12/17/22 11:53 Intake & Output: Intake & Output 12/15/22 12/16/22 12/17/22 12/18/22 11:59 11:59 11:59 11:59 Intake Total 480 200 360 Output Total 1250 1400 600 Balance -770 -1200 -240 Weight 64.2 kg 64.2 kg - Lab Result Diagrams: 12/17/22 04:57 12/17/22 04:57 Lab Results-Last 24 Hrs: Lab Results-Last 24 Hours 12/17/22 12/17/22 Range/Units 04:57 04:57 WBC 6.5 (4.0-10.5) x10^3/uL RBC 2.58 L (4.1-5.6) x10^6/uL Hgb 7.4 L (12.5-18.0) g/dL Hct 23.6 L (42-50) % MCV 91.5 (78-100) fL MCH 28.7 (26-32) pg MCHC 31.4 L (32-36) g/dL RDW 15.1 H (11.5-14.0) % Plt Count 139 L (150-450) x10^3/uL MPV 10.9 (7.5-11.0) fL Sodium 132 L (137-145) mmol/L Potassium 3.5 (3.5-5.1) mmol/L Chloride 96 L (98-107) mmol/L Carbon Dioxide 35 H (22-30) mmol/L Anion Gap 5.8 (5-15) MEQ/L BUN 28 H (9-20) mg/dL Creatinine 0.73 (0.66-1.25) mg/dL Estimated GFR > 60.0 ML/MIN Glucose 114 H (74-106) mg/dL Calcium 7.3 L (8.4-10.2) mg/dL Micro Results-Entire Visit: Microbiology 12/15/22 18:45 Urine Culture - Final Catherized NO GROWTH - Radiology Exams Ordered Rad Exams-Entire Visit: Radiology Procedures Category Date Time Status CHEST 1 VIEW (PORTABLE) Stat Exams 12/15/22 17:22 Completed ECHO W/2D AND DOPPLER [US] Routine Exams 12/16/22 22:58 Draft Discharge Exam Neurologic Exam: alert, oriented x 3 Eye Exam: PERRL, EOMI Ears, Nose, Throat Exam: normal ENT inspection Neck Exam: normal inspection Respiratory Exam: normal breath sounds Cardiovascular Exam: regular rate/rhythm, normal heart sounds Gastrointestinal/Abdomen Exam: soft, normal bowel sounds Back Exam: normal inspection, normal range of motion Extremity Exam: pedal edema (Edema much improved) Skin Exam: normal color Final Diagnosis/Problem List - Final Discharge Diagnosis/Problem (1) Acute exacerbation of CHF (congestive heart failure) Current Visit: Yes Status: Acute Assessment & Plan: improved. plan as per clinical course Code(s): I50.9 - HEART FAILURE, UNSPECIFIED (2) UTI (urinary tract infection) Current Visit: Yes Status: Acute Assessment & Plan: culture negative. stop antibiotics Code(s): N39.0 - URINARY TRACT INFECTION, SITE NOT SPECIFIED (3) Anemia Current Visit: Yes Status: Acute Assessment & Plan: no siena bleeding. counts stable Code(s): D64.9 - ANEMIA, UNSPECIFIED (4) Elevated troponin I level Current Visit: Yes Status: Acute Assessment & Plan: no chest pain. troponin stabilized. no acute changes on ekg. Code(s): R77.8 - OTHER SPECIFIED ABNORMALITIES OF PLASMA PROTEINS - Discharge Disposition: Home, Self-Care Condition: Stable Prescriptions: Continue Hydrocodone/APAP 10/325 mg [English 10/325 MG TableT] 1 ea PO BID PRN PRN Reason: Pain Atorvastatin Calcium 20 mg PO HS Doxazosin Mesylate [Cardura] 4 mg PO DAILY Famotidine 20 mg [Pepcid 20 MG] 20 mg PO HS Aspirin EC 81 mg [Ecotrin 81 mg] 81 mg PO DAILY Ciprofloxacin [Cipro 500 MG] 500 mg PO UD Potassium Chloride 10 meq PO BID Finasteride 5 mg [Proscar 5 MG] 5 mg PO DAILY Tamsulosin HCl 0.4 mg [Flomax 0.4 MG] 0.4 mg PO DAILY Furosemide [Lasix] 20 mg PO DAILY #7 tablet Instructions: Heart Failure, Adult (DC) Additional Instructions: HOME WITH [facility] Forms: Discharge Instructions, CHF Discharge Instructions
[2022-12-17 16:11] VITALS: BP 123/55; PULSE 72; O2SAT 92
== END 2022-12-17 16:29 | disposition home or self-care (01) ==
LOC: ED 16:38 → MED SURG 22:56
PROVIDERS: ADMIT Internal Medicine; ATTEND General Practice
DX: I11.0 Hypertensive heart disease with heart failure (principal); I50.9 Heart failure, unspecified; N39.0 Urinary tract infection, site not specified; D64.9 Anemia, unspecified; R77.8 Other specified abnormalities of plasma proteins; R60.0 Localized edema; I25.10 Atherosclerotic heart disease of native coronary artery without angina pectoris; E78.5 Hyperlipidemia, unspecified; Z79.899 Other long term (current) drug therapy; Z20.828 Contact with and (suspected) exposure to other viral communicable diseases
CPT/HCPCS: 36000; 36415; 51702; 71045; 80048; 80053; 81001; 83735; 83880; 84484; 85025; 85027; 85610; 87086; 93005; 93041; 93306; 94760; 96365; 96374; 99285; Q3014; 93268; J0696; J1940; A9270-GY; G0378

== ENCOUNTER 2023-01-13 16:16 | Inpatient (IN) | payer MEDICARE, OTHER ==
[2023-01-13] MEDS ORDERED: Sodium Chloride 0.9% 500 ML 500 ML IV ONE ×3 (16:31→17:15)
[2023-01-13 16:36] LABS: Absolute Neutrophil Ct (ANC) 7.31 x10^3/uL (1.4-6.9); BASOPHIL % 0.2 % (0.0-0.4); Basophil (Absolute #) 0.02 x10^3/uL (0-0.4); Eosinophil % 0.3 % (0.00-5.0); Eosinophil (Absolute #) 0.03 x10^3/uL (0-0.5); Hematocrit 24.8 % (42-50); Hemoglobin 7.8 g/dL (12.5-18.0); IMMATURE GRAN # 0.07 x10^3u/L (0.00-0.03); IMMATURE GRAN % 0.8 % (0.00-0.4); Lymphocyte (Absolute #) 0.93 x10^3/uL (1.0-4.6); Lymphocytes % 10.3 % (24.0-44.0); Mean Cell Volume 91.2 fL (78-100); Mean Corpuscular Hemoglobin 28.7 pg (26-32); Mean Corpuscular Hgb Concent. 31.5 g/dL (32-36); Mean Platelet Volume 10.4 fL (7.5-11.0); Monocytes % 7.7 % (0.0-12.0); Neutrophil % 80.7 % (36.0-66.0); Platelet Count 181 x10^3/uL (150-450); Red Blood Count 2.72 x10^6/uL (4.1-5.6); Red Cell Distribution Width 15.8 % (11.5-14.0); White Blood Count 9.1 x10^3/uL (4.0-10.5)
[2023-01-13 16:50] LABS: ALBUMIN 2.4 g/dL (3.5-5.0); ALKALINE PHOSPHATASE 144 U/L (38-126); ANION GAP 7.5 MEQ/L (5-15); BLOOD UREA NITROGEN 15 mg/dL (9-20); CHLORIDE 91 mmol/L (98-107); Calcium 7.5 mg/dL (8.4-10.2); Carbon Dioxide 36 mmol/L (22-30); Creatinine 1 0.69 mg/dL (0.66-1.25); EST GLOMERULAR FILTRATION RATE > 60.0 ML/MIN; Glucose 113 mg/dL (74-106); LIPASE 69 U/L (23-300); Potassium 3.2 mmol/L (3.5-5.1); SGOT/AST 47 U/L (17-59); SGPT/ALT 25 U/L (0-50); SODIUM 132 mmol/L (137-145); Total Protein 6.3 g/dL (6.3-8.2)
[2023-01-13 17:23] LABS: Appearance Turbid (Clear); Bacteria Many /HPF (None Seen); Bilirubin Small (Negative); Blood Large (Negative); Epithelial Cells Few /HPF (None Seen); Glucose, Urine Negative (Negative); Hyaline Casts >50 /LPF (0-2); Ketones Negative (Negative); Leukocyte Esterase Large (Negative); Nitrite Negative (Negative); Ph 5.5 (4.6-8.0); Protein,Urine Dip 300 (Negative); RBC >100 /HPF (0-5); WBC >100 /HPF (0-5)
[2023-01-13 17:25] LABS: ADD URINE CULTURE? YES (NO)
[2023-01-13] MEDS ORDERED: ROCEPHIN 2 Gm-D5w 50ML BAG** 2 G/50 ML IVPB IV STA (18:29)
[2023-01-13] MEDS ORDERED: ROCEPHIN 2 Gm-D5w 50ML BAG** 2 G/50 ML IVPB IV ONE (18:32)
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
[2023-01-13] MEDS ORDERED: DUONEB 0.5-3 MG/3 ml Neb IH PRN (21:19)
[2023-01-14] MEDS ORDERED: Klor Con PO ONE ×2 (00:37→02:00)
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
[2023-01-14] MEDS ORDERED: Sodium Chloride 0.9% W/ 20 mEq KCl/LITER 1,000 ML IV SCH (01:15)
[2023-01-14] MEDS ORDERED: Pepcid 20 MG PO ONE (02:00)
[2023-01-14] MEDS ORDERED: ZOCOR 20MG PO ONE (02:00)
[2023-01-14] MEDS: HYDROCODONE-ACETAMIN 10-325 MG PO PRN (02:48)
[2023-01-14 04:59] LABS: BASOPHIL % 0.1 % (0.0-0.4); Basophil (Absolute #) 0.01 x10^3/uL (0-0.4); Eosinophil % 0.3 % (0.00-5.0); Eosinophil (Absolute #) 0.02 x10^3/uL (0-0.5); Hematocrit 22.2 % (42-50); IMMATURE GRAN # 0.05 x10^3u/L (0.00-0.03); IMMATURE GRAN % 0.7 % (0.00-0.4); Lymphocyte (Absolute #) 0.82 x10^3/uL (1.0-4.6); Lymphocytes % 11.7 % (24.0-44.0); Mean Cell Volume 90.2 fL (78-100); Mean Corpuscular Hemoglobin 28.5 pg (26-32); Mean Corpuscular Hgb Concent. 31.5 g/dL (32-36); Mean Platelet Volume 10.6 fL (7.5-11.0); Monocyte (Absolute #) 0.59 x10^3/uL (0.0-1.3); Monocytes % 8.4 % (0.0-12.0); Neutrophil % 78.8 % (36.0-66.0); Platelet Count 140 x10^3/uL (150-450); Red Blood Count 2.46 x10^6/uL (4.1-5.6); Red Cell Distribution Width 15.9 % (11.5-14.0)
[2023-01-14 05:29] LABS: ALKALINE PHOSPHATASE 112 U/L (38-126); ANION GAP 4.4 MEQ/L (5-15); BLOOD UREA NITROGEN 14 mg/dL (9-20); CHLORIDE 93 mmol/L (98-107); Calcium 7.2 mg/dL (8.4-10.2); Carbon Dioxide 36 mmol/L (22-30); Creatinine 1 0.66 mg/dL (0.66-1.25); EST GLOMERULAR FILTRATION RATE > 60.0 ML/MIN; Glucose 147 mg/dL (74-106); Potassium 3.5 mmol/L (3.5-5.1); SGOT/AST 33 U/L (17-59); SGPT/ALT 23 U/L (0-50); SODIUM 130 mmol/L (137-145); Total Protein 5.5 g/dL (6.3-8.2)
--- NOTE | 2023-01-14 08:37 | XRAY ---
Indication: Diarrhea. Multiple contiguous axial images obtained through the abdomen and pelvis without contrast. Comparison: March 21, 2022 Lung bases demonstrate new cardiomegaly with small pericardial effusion. Also new incompletely visualized moderate bibasilar pleural effusions with bibasilar compressive atelectasis and diffuse anasarca. Findings favor cardiac decompensation/CHF. Superimposed pneumonia not completely excluded. Stable aortic valve replacement surgery and incompletely visualized left pacemaker/leads. Noncontrasted stomach and bowel loops are nonobstructed. Inferior spleen demonstrates new rounded hypodensity at least 4 cm in greatest dimension. Lack of IV contrast precludes further characterization. Tiny nonspecific pelvic free fluid. No walled off fluid collection or free air. Near empty urinary bladder again demonstrates Rashid balloon catheter. Remaining liver, gallbladder, pancreas, adrenal glands, kidneys, and ureters are unremarkable for noncontrast exam. Again diffuse scattered archers carotid calcifications without AAA. Osseous structures intact again with osteopenia and mild/moderate degenerative changes throughout the spine/both hips. Impression: 1. New cardiomegaly, pericardial effusion, bibasilar effusions/atelectasis, and diffuse anasarca favoring cardiac decompensation/CHF. Tiny pelvic free fluid may be related. 2. New indeterminant splenic hypodense lesion. Contrast exam may yield further information. 3. Again chronic findings including Rashid balloon catheter in situ, arteriosclerotic disease, and chronic bony findings.
[2023-01-14] MEDS: ECOTRIN 81 MG PO SCH (09:25)
[2023-01-14] MEDS: Proscar 5 MG PO SCH (09:26)
[2023-01-14] MEDS: Flomax 0.4 MG PO SCH (09:26)
[2023-01-14] MEDS: PROTONIX 40 MG IV IV SCH (09:26)
[2023-01-14] MEDS: CARDURA 2 MG PO SCH (09:26)
[2023-01-14] MEDS: Klor Con PO SCH ×2 (09:27→22:19)
[2023-01-14] MEDS ORDERED: DOXAZOSIN MESYLATE 4 MG PO SCH (10:00)
[2023-01-14] MEDS ORDERED: PHARMACY DOSING REQUIRED: VANCOMYCIN IV ONE (14:21)
--- NOTE | 2023-01-14 14:25 | TM.IN ---
Tele-Medicine Incident Note - Incident Note Tel-Medicine Incident Note: 01/14/23 1418 Patient admitted overnight by Dr. Ludwig, seen today in follow-up. Patient, onsite case manager, patient's son, and patient's caregiver had extensive discussions; please see onsite case manager notes for details. Patient was admitted from home where he was on hospice care, for diarrhea. The diarrhea has resolved today, although he continues to have a poor appetite. He has diffuse pitting edema in the bilateral legs, and early satiety. Given the resolution of his diarrhea, his IV fluids were stopped. Plans were made to discharge patient back home under hospice care, but caregiver would not allow hospice staff to enter the house. The plan was to hold off on any urgent decisions until Thursday, when the patient's son can be present for a full family discussion. However, patient was found to have gram-positive cocci in change on the Gram sta in of both blood cultures. No obvious source, but also noted to have gram- positive cocci on his urine culture Gram stain, so possibly this is an Enterococcus that has now seeded the blood. Discussed again with patient, and he stated that he did want to pursue treatment for this. As such, decided to remain inpatient, continue IV antibiotics, and follow-up blood culture results. We can still plan for discussion on Thursday with family and support mechanism to decide ultimate goal. Continue IV Rocephin and add IV vancomycin. Follow-up blood cultures Restart home Lasix 20 mg daily Entirety of encounter took place via telemedicine. Telemedicine Encounter - Telemedicine Encounter Telemedicine Encounter: The entirety of this encounter was performed via Telemedicine"
[2023-01-14] MEDS: LASIX 20 MG PO SCH (15:01)
[2023-01-14] MEDS: VANCOMYCIN 1 GRAM/200 ML BAG 1 GM/200 ML PIGGYBACK IV SCH (15:01)
[2023-01-14] MEDS ORDERED: NON-FORMULARY ITEM (Atorvastatin Calcium [Atorvastatin Calcium] 20 MG Tablet) PO SCH (22:00)
[2023-01-14] MEDS: ROCEPHIN 2 Gm-D5w 50ML BAG** 2 G/50 ML IVPB IV SCH (22:09)
[2023-01-14] MEDS: Pepcid 20 MG PO SCH (22:19)
[2023-01-14] MEDS: ZOCOR 20MG PO SCH (22:19)
[2023-01-15 04:53] LABS: Hematocrit 23.7 % (42-50); Hemoglobin 7.4 g/dL (12.5-18.0); Mean Cell Volume 91.2 fL (78-100); Mean Corpuscular Hemoglobin 28.5 pg (26-32); Mean Corpuscular Hgb Concent. 31.2 g/dL (32-36); Mean Platelet Volume 10.6 fL (7.5-11.0); Platelet Count 158 x10^3/uL (150-450); White Blood Count 6.2 x10^3/uL (4.0-10.5)
[2023-01-15 05:04] LABS: ANION GAP 3.7 MEQ/L (5-15); BLOOD UREA NITROGEN 14 mg/dL (9-20); CHLORIDE 95 mmol/L (98-107); Calcium 7.5 mg/dL (8.4-10.2); Carbon Dioxide 37 mmol/L (22-30); Creatinine 1 0.63 mg/dL (0.66-1.25); EST GLOMERULAR FILTRATION RATE > 60.0 ML/MIN; Glucose 114 mg/dL (74-106); Potassium 3.7 mmol/L (3.5-5.1); SODIUM 133 mmol/L (137-145)
[2023-01-15] MEDS: HYDROCODONE-ACETAMIN 10-325 MG PO PRN (07:17)
[2023-01-15] MEDS: VANCOMYCIN 1 GRAM/200 ML BAG 1 GM/200 ML PIGGYBACK IV SCH (10:00)
[2023-01-15] MEDS: LASIX 20 MG PO SCH (10:55)
[2023-01-15] MEDS: ECOTRIN 81 MG PO SCH (10:56)
[2023-01-15] MEDS: CARDURA 2 MG PO SCH (10:56)
[2023-01-15] MEDS: Flomax 0.4 MG PO SCH (10:56)
[2023-01-15] MEDS: Klor Con PO SCH ×2 (10:56→21:46)
[2023-01-15] MEDS: Proscar 5 MG PO SCH (10:56)
[2023-01-15] MEDS: PROTONIX 40 MG IV IV SCH (10:56)
--- NOTE | 2023-01-15 12:54 | PCM.NOTE ---
Date and Time: 01/15/23 1241 Subjective Assessment: No acute events overnight. Patient denies any symptoms. However, he seems to be a little bit more confused today than yesterday. He denies any nausea, or any diarrhea since arrival. He does confirm that he has a Rashid catheter at home. But when asked if he had any questions, he said "yeah, can you tell me what is going on here?" And could not explain back what we had just discussed. Objective Exam Wound Assessment: Skin/Wound Assessment Wound/Incision Assessment Start: 01/13/23 23:40 Text: Status: Active Freq: Q6H Protocol: Document 01/15/23 11:00 AR (Rec: 01/15/23 11:28 AR [id number]) Wound/Incision Assessment Left Buttock Wound Assessment Shift Assessment Wound Type Pressure Ulcer Wound Stage Deep Tissue Injury Dressing Status Changed Drainage Amount None General Appearance Open to air,Reddened, Unapproximated Length (cm) (cm) 8 Width (cm) (cm) 3 Depth (cm) (cm) 0.5 Wound Bed Greatest Portion Red (Granulation) Wound Bed Lesser Portion Red (Granulation) Surrounding Tissue [facility] Comment skin barrier ointment applied Wound Photo Photo Taken Yes Date: 01/14/23 Time: 04:00 Comments: GENERAL: Sitting up in bed in no acute distress NEURO: Alert, oriented to person, and place, but not situation CV: Regular rate and rhythm, no murmurs, pitting edema to bilateral legs PULM: Clear to auscultation bilaterally, no work of breathing, on 4 L oxygen by nasal cannula ABD: Soft, nontender, nondistended OBJECTIVE DATA Vital Signs: Vital Signs - 24 hr Temp Pulse Resp BP Pulse Ox 01/15/23 11:43 97.3 F 72 18 106/43 98 01/15/23 07:17 96 01/15/23 07:12 97.1 F 83 24 105/51 96 01/15/23 04:00 97.9 F 77 16 122/56 99 01/15/23 00:00 97.3 F 123 H 17 129/60 99 01/14/23 19:30 96 01/14/23 19:17 98.2 F 82 30 H 108/56 97 01/14/23 16:00 97.5 F 82 16 124/56 99 Pain Assessment - Last Documented Pain Intensity 0 Pain Scale Used 0-10 Pain Scale Intake and Output: Intake & Output 01/13/23 01/14/23 01/15/23 01/16/23 11:59 11:59 11:59 11:59 Intake Total 478 240 Output Total 700 1450 Balance -222 -1210 Weight 72.1 kg 72.1 kg Lab Results: Lab Results-Last 24 Hours 01/15/23 01/15/23 Range/Units 04:32 04:32 WBC 6.2 (4.0-10.5) x10^3/uL RBC 2.60 L (4.1-5.6) x10^6/uL Hgb 7.4 L (12.5-18.0) g/dL Hct 23.7 L (42-50) % MCV 91.2 (78-100) fL MCH 28.5 (26-32) pg MCHC 31.2 L (32-36) g/dL RDW 16.0 H (11.5-14.0) % Plt Count 158 (150-450) x10^3/uL MPV 10.6 (7.5-11.0) fL Sodium 133 L (137-145) mmol/L Potassium 3.7 (3.5-5.1) mmol/L Chloride 95 L (98-107) mmol/L Carbon Dioxide 37 H (22-30) mmol/L Anion Gap 3.7 L (5-15) MEQ/L BUN 14 (9-20) mg/dL Creatinine 0.63 L (0.66-1.25) mg/dL Estimated GFR > 60.0 ML/MIN Glucose 114 H (74-106) mg/dL Calcium 7.5 L (8.4-10.2) mg/dL Urine culture: Greater than 100,000 colonies of MRSA, sensitive to Zyvox, gentamicin, nitrofurantoin, tetracycline, Bactrim, vancomycin, daptomycin Blood cultures: Both samples with Gram stain positive for gram-positive cocci in chains. One culture with preliminary growth of gram-positive cocci, with ID and sensitivity pending. Radiology Exams: Radiology Procedures Category Date Time Status ABDOMEN AND PELVIS W/0 CONTRAS [CT] Stat Exams 01/13/23 16:31 Completed Multi-Disciplinary Progress Notes: Multi-Disciplinary Progress Notes 01/15/23 09:53 Case Management Note by Isa Ware S/Miguelito SON-CHAS- HE IS COMING INTO TOWN THIS AFTERNOON. HOSPICE IS WORKING WITH FAMILY AND ASSOCIATE FIELD SERVICE ENGINEER TO SET UP A MTG TOMORROW AFTERNOON. CHAS REPORTS THERE WILL BE A "LINE DRAWN IN THE SAND TOMORROW" HE FEELS PATIENT EITHER NEEDS TO ACCEPT HOSPICE AND RETURN HOME WITH ELLI (IN AGREEMENT WITH HOSPICE) OR HE NEEDS TO GO TO A SNF FACILITY. CHAS WAS NOTIFIED PATIENT'S INSURANCE WILL NOT COVER [facility] D/T PATIENT LIKELY CONSIDERED BEING NON-REHABABLE. HE UNDERSTOOD. Initialized on 01/15/23 09:53 - END OF NOTE 01/14/23 15:00 (created 01/14/23 15:57) Case Management Note by Laney Smith HERE FROM HOSPICE. PT HAS SIGNED PAPERWORK FOR REVOCATION OF HOSPICE CARE. PT WANTS TO STAY IN HOSPITAL FOR TREATMENT. Initialized on 01/14/23 15:57 - END OF NOTE 01/14/23 13:22 Case Management Note by Isa Ware/Miguelito PATIENT AND WITH CAREGIVER AND HER FRIEND- AGAIN DISCUSSED PATIENT'S OPTIONS WITH HOSPICE. PATIENT BRIEFLY ALSO MENTIONED HHC BUT WAS NOTIFIED THAT HOSPICE IS MORE SUPPORT. HE VERIFIED UNDERSTANDING. AFTER LONG DISCUSSION- PATIENT AND CAREGIVER IN AGREEMENT TO CONTINUE WITH HOSPICE AT THIS TIME UNTIL THEY AT LEAST MEET WITH HOSPICE AND FAMILY ON THURSDAY. DURING CONVERSATION- ELLI MENTIONED CONCERN IF THE OXYGEN WAS WORKING CORRECTLY. CALLED [facility]- SHE WILL PUT IN STAT REPAIR ORDER. WILL DC PATIENT HOME WITH AMBULANCE ONCE OXYGEN ENSURED TO BE WORKING WELL Initialized on 01/14/23 13:22 - END OF NOTE Assessment/Plan (1) Bacteremia Current Visit: Yes Status: Acute Assessment & Plan: 87-year-old man with history of chronic diastolic heart failure, chronic hypoxic respiratory failure, hypertension, GERD, and TAVR, who was brought in initially for diarrhea after being given laxatives. Diarrhea quickly resolved, blood cultures have been drawn, and was found to have gram-positive cocci in chains and blood cultures. Of note, patient had been on hospice at home, but there is some disagreement over her patient's significant other, with whom he lives, and patient's son, who is the POA, regarding patient's hospice status. Patient opted yesterday to rescind hospice and receive treatment in the hospital, but son is coming tomorrow to discuss further. ## Bacteremia with gram-positive cocci in chains on the Gram stain of both blood culture bottles, with 1 culture bottle now growing gram-positive cocci. Concerning for possible Enterococcus given his chronic indwelling Rashid catheter, although he is growing staph in urine culture (see below). No evidence of sepsis or any focal symptoms. Continue vancomycin DC Rocephin since no gram-negative's identified Follow-up blood culture identification and susceptibility testing ## Acute cystitis unclear if truly symptomatic cute cystitis, as patient has difficulty describing given his chronic Rashid. As well, his urinalysis is difficult to interpret in the setting of large numbers of hyaline casts and RBCs. He has a chronic indwelling Rashid catheter, so is high risk for colonization. His catheter was exchanged on arrival. Now growing greater than 100,000 MRSA on urine culture. Continue vancomycin for now DC Rocephin Pending family meeting tomorrow, if opting to go home but still want to do oral antibiotics, could use Bactrim. Alternatively nitrofurantoin, but this would not cover the bacteremia. ## Diarrhea in the setting of laxative use. Now resolved. ## Hospice status currently some disagreement over current management. Patient at various time seems to have more or less capacity for making his own medical decisions, and decided to at least temporarily rescind hospice yesterday. As well, patient's caregiver at home has refused hospice to enter the house at home. Patient's son is coming tomorrow, and we will arrange for family meeting to discuss goals and plans of care. Follow-up family meeting tomorrow ## Acute on chronic diastolic heart failure with increased leg edema, although this might be his baseline. Continue home Lasix 20 mg daily ## Anemia of chronic disease appears to be at his baseline hemoglobin level around 7-8. Follow CBC ## Hypokalemia secondary to diuretics. Levels corrected today. Continue home potassium chloride 10 mEq BID ## BPH Continue home Cardura, finasteride and Flomax CODE STATUS: DNR Diet: Regular Prophylaxis: Start Lovenox 40 daily Code(s): R78.81 - BACTEREMIA Telemedicine Encounter - Telemedicine Encounter Telemedicine Encounter: The entirety of this encounter was performed via Telemedicine"
[2023-01-15] MEDS: ZOCOR 20MG PO SCH (21:45)
[2023-01-15] MEDS: Pepcid 20 MG PO SCH (21:45)
[2023-01-15] MEDS: ROCEPHIN 2 Gm-D5w 50ML BAG** 2 G/50 ML IVPB IV SCH (21:46)
[2023-01-16] MEDS: HYDROCODONE-ACETAMIN 10-325 MG PO PRN (01:08)
[2023-01-16] MEDS ORDERED: PROVENTIL 2.5 MG/3 ML NEB IH ONE (01:10)
[2023-01-16] MEDS: PROVENTIL 2.5 MG/3 ML NEB IH PRN ×2 (01:11→09:05)
[2023-01-16] MEDS: VANCOMYCIN 1 GRAM/200 ML BAG 1 GM/200 ML PIGGYBACK IV SCH (04:45)
[2023-01-16 09:27] LABS: Absolute Neutrophil Ct (ANC) 3.69 x10^3/uL (1.4-6.9); BASOPHIL % 0.2 % (0.0-0.4); Basophil (Absolute #) 0.01 x10^3/uL (0-0.4); Eosinophil % 0.7 % (0.00-5.0); Eosinophil (Absolute #) 0.04 x10^3/uL (0-0.5); Hematocrit 26.7 % (42-50); IMMATURE GRAN # 0.09 x10^3u/L (0.00-0.03); IMMATURE GRAN % 1.5 % (0.00-0.4); Lymphocyte (Absolute #) 1.37 x10^3/uL (1.0-4.6); Lymphocytes % 23.4 % (24.0-44.0); Mean Corpuscular Hemoglobin 27.9 pg (26-32); Monocyte (Absolute #) 0.65 x10^3/uL (0.0-1.3); Monocytes % 11.1 % (0.0-12.0); Neutrophil % 63.1 % (36.0-66.0); Platelet Count 173 x10^3/uL (150-450); Red Blood Count 2.87 x10^6/uL (4.1-5.6); Red Cell Distribution Width 15.7 % (11.5-14.0); White Blood Count 5.9 x10^3/uL (4.0-10.5)
[2023-01-16 09:39] LABS: ALBUMIN 2.4 g/dL (3.5-5.0); ALKALINE PHOSPHATASE 126 U/L (38-126); ANION GAP 5.5 MEQ/L (5-15); BLOOD UREA NITROGEN 14 mg/dL (9-20); CHLORIDE 98 mmol/L (98-107); Calcium 7.8 mg/dL (8.4-10.2); Carbon Dioxide 35 mmol/L (22-30); Creatinine 1 0.52 mg/dL (0.66-1.25); EST GLOMERULAR FILTRATION RATE > 60.0 ML/MIN; Glucose 128 mg/dL (74-106); Potassium 3.5 mmol/L (3.5-5.1); SGOT/AST 37 U/L (17-59); SGPT/ALT 24 U/L (0-50); SODIUM 135 mmol/L (137-145); Total Protein 6.3 g/dL (6.3-8.2)
[2023-01-16] MEDS ORDERED: Seroquel 25 MG PO PRN (09:44)
[2023-01-16] MEDS: LASIX 20 MG PO SCH (10:17)
[2023-01-16] MEDS: PROTONIX 40 MG IV IV SCH (10:17)
[2023-01-16] MEDS: Flomax 0.4 MG PO SCH (10:18)
[2023-01-16] MEDS: Klor Con PO SCH (10:18)
[2023-01-16] MEDS: ECOTRIN 81 MG PO SCH (10:18)
[2023-01-16] MEDS: CARDURA 2 MG PO SCH (10:18)
[2023-01-16] MEDS: Proscar 5 MG PO SCH (10:21)
[2023-01-16 10:55] VITALS: BP 113/76; PULSE 105
--- NOTE | 2023-01-16 11:25 | PCM.NOTE ---
Date and Time: 01/16/23 1120 Subjective Assessment: Overnight, patient complained of feeling short of breath. His oxygen levels remain normal, and was not in any visible respiratory distress. He was given a breathing treatment, with relief of symptoms. He had recurrence this morning, with only partial relief from breathing treatment. However, during my interview, he says he is feeling better. Had extensive discussion with patient, patient's caregiver Marycarmen, case technician, and myself regarding current plans and possible options for hospice. Patient was alert, oriented to person, place, date, but at times seemed a little confused over situation. However, he was able to state that he would rather be home than in the detention. There was some confusion over possible treatment options for his bacteremia. I discussed the results with the Enterococcus faecalis and his blood cultures, and offered a less aggressive course involving p.o. antibiotics and that repeat cultures and echocardiogram, versus aggressive IV antibiotics, echo, and surveillance cultures. I explained that the bacteremia was not causing his dyspnea or his overall issues with his heart failure and progressive debility. That the bacteremia was essentially an incidental finding from the ER work-up, and would not have been found based on his symptom presentation. His caregiver stated that she would want him to be in the hospital for care. She has been reluctant to allow hospice nurses into her home, and does not seem currently prepared to take him home. Patient stated that he wanted to go home with right a, and did not want to be in the hospital. We discussed role of hospice, how they have been trying to give him a hospital bed to help with his sacral wound, and can provide respite care for caregivers when they need to leave the house. Patient and caregiver seemed more interested in hospice at that point. We also discussed that he is going to from his heart and breathing issues, and that we are ultimately not going to be able to prevent that. Later, I had a telephone discussion with patient's son Mj, who is the medical power of assistant county attorney. Discussed the same options as far as management of bacteremia, and he also seemed to have consistent goals with minimizing inpatient treatment. He expressed grave concerns with patient going home with Marycarmen, as there were similar concerns about letting hospice into the home when this was first arranged 4 weeks ago. He is concerned that patient will need to be in a detention, and is wondering what coverage would have for that, even if it meant self-pay at some point. Declan and his are currently coming up to the hospital for a meeting at noon with patient, caregiver, and case technician. Objective Exam Wound Assessment: Skin/Wound Assessment Wound/Incision Assessment Start: 01/13/23 23:40 Text: Status: Active Freq: Q6H Protocol: Document 01/16/23 11:00 AR (Rec: 01/16/23 11:12 AR [id number]) Wound/Incision Assessment Left Buttock Wound Assessment Shift Assessment Wound Type Pressure Ulcer Wound Stage Deep Tissue Injury Drainage Amount None General Appearance Open to air,Reddened, Unapproximated Length (cm) (cm) 8 Width (cm) (cm) 3 Depth (cm) (cm) 0.5 Wound Bed Greatest Portion Red (Granulation) Wound Bed Lesser Portion Red (Granulation) Surrounding Tissue [place] Comment skin barrier ointment applied Wound Photo Photo Taken Yes Date: 01/14/23 Time: 04:00 Comments: GENERAL: Sitting up in bed in no acute distress NEURO: Alert, oriented to person, and place, but not situation CV: Regular rate and rhythm, no murmurs, pitting edema to bilateral legs PULM: Clear to auscultation bilaterally, no work of breathing, on 4 L oxygen by nasal cannula ABD: Soft, nontender, nondistended OBJECTIVE DATA Vital Signs: Vital Signs - 24 hr Temp Pulse Resp BP Pulse Ox 01/16/23 10:54 97.8 F 105 H 16 113/76 95 01/16/23 09:05 115 H 18 93 L 01/16/23 07:47 76 18 98 01/16/23 06:45 97.7 F 87 16 122/48 95 01/16/23 04:00 98.6 F 122 H 30 H 140/76 94 L 01/16/23 01:28 122 H 30 H 94 L 01/16/23 00:00 98.6 F 84 24 140/76 01/15/23 20:00 97.7 F 82 20 120/60 95 01/15/23 19:58 95 01/15/23 16:00 97.7 F 129 H 24 116/47 100 01/15/23 11:43 97.3 F 72 18 106/43 98 Pain Assessment - Last Documented Pain Intensity 2 Pain Scale Used 0-10 Pain Scale Intake and Output: Intake & Output 01/13/23 01/14/23 01/15/23 01/16/23 11:59 11:59 11:59 11:59 Intake Total 478 240 480 Output Total 490 3080 1100 Balance -313 -4055 -060 Weight 72.1 kg 72.1 kg 72.1 kg Lab Results: Lab Results-Last 24 Hours 01/16/23 01/16/23 Range/Units 09:22 09:22 WBC 5.9 (4.0-10.5) x10^3/uL RBC 2.87 L (4.1-5.6) x10^6/uL Hgb 8.0 L (12.5-18.0) g/dL Hct 26.7 L (42-50) % MCV 93.0 (78-100) fL MCH 27.9 (26-32) pg MCHC 30.0 L (32-36) g/dL RDW 15.7 H (11.5-14.0) % Plt Count 173 (150-450) x10^3/uL MPV 10.0 (7.5-11.0) fL Gran % 63.1 (36.0-66.0) % Immature Gran % (Auto) 1.5 H (0.00-0.4) % Nucleat RBC Rel Count 0.0 (0.00-0.1) % Eos # (Auto) 0.04 (0-0.5) x10^3/uL Immature Gran # (Auto) 0.09 H (0.00-0.03) x10^3u/L Absolute Lymphs (auto) 1.37 (1.0-4.6) x10^3/uL Absolute Monos (auto) 0.65 (0.0-1.3) x10^3/uL Absolute Nucleated RBC 0.00 (0.00-0.01) x10^3u/L Lymphocytes % 23.4 L (24.0-44.0) % Monocytes % 11.1 (0.0-12.0) % Eosinophils % 0.7 (0.00-5.0) % Basophils % 0.2 (0.0-0.4) % Absolute Granulocytes 3.69 (1.4-6.9) x10^3/uL Basophils # 0.01 (0-0.4) x10^3/uL Sodium 135 L (137-145) mmol/L Potassium 3.5 (3.5-5.1) mmol/L Chloride 98 (98-107) mmol/L Carbon Dioxide 35 H (22-30) mmol/L Anion Gap 5.5 (5-15) MEQ/L BUN 14 (9-20) mg/dL Creatinine 0.52 L (0.66-1.25) mg/dL Estimated GFR > 60.0 ML/MIN Glucose 128 H (74-106) mg/dL Calcium 7.8 L (8.4-10.2) mg/dL Total Bilirubin 0.50 (0.2-1.3) mg/dL AST 37 (17-59) U/L ALT 24 (0-50) U/L Alkaline Phosphatase 126 (38-126) U/L Serum Total Protein 6.3 (6.3-8.2) g/dL Albumin 2.4 L (3.5-5.0) g/dL Urine culture greater than 100,000 MRSA (sensitive to Zyvox, Macrobid, Bactrim, Vanco) Blood culture x2 Enterococcus faecalis, sensitive to Zyvox, Vanco Assessment/Plan (1) Bacteremia Current Visit: Yes Status: Acute Assessment & Plan: 87-year-old man with history of chronic diastolic heart failure, chronic hypoxic respiratory failure, hypertension, GERD, and TAVR, who was brought in initially for diarrhea after being given laxatives. Diarrhea quickly resolved, but blood cultures drawn to the ER eventually grew Enterococcus faecalis. Of note, patient had been on hospice at home, but there is some disagreement over her patient's significant other, with whom he lives, and patient's son, who is the POA, regarding patient's hospice status. ## Enterococcus faecalis bacteremia no evidence of sepsis or focal symptoms. Likely source is from his chronic indwelling Rashid catheter, which is already been exchanged. He also has MRSA in the urine, which is likely contaminant. Spoke to microbiology lab, and they are unable to test for ampicillin susceptibility here, which would require a send out lab which would take 5 days to come back. Given patient's stability, and overall goals of care, this could likely be treated with an oral course of Zyvox. However, unclear at this point which direction family wants to go. Continue vancomycin DC Rocephin (not done yesterday) If planning on pursuing hospice support with less aggressive intervention, will plan for a 4-week course of oral Zyvox If planning more aggressive course, can keep on IV vancomycin for 2 weeks, repeat blood cultures to demonstrate clearance, and check echocardiogram to rule out endocarditis ## Acute cystitis MRSA is urine culture, more likely to be contaminant than active infection, as urinalysis was difficult to interpret in the setting of large numbers of hyaline casts and RBCs. At risk for colonization because of chronic indwelling catheter. Continue vancomycin for now Antibiotics as above for Enterococcus bacteremia ## Diarrhea in the setting of laxative use. Now resolved. ## Hospice status please see above for extensive discussion with patient, caregiver, and family member. At this point, patient and family do seem to agree on a desire for overall limited interventions while trying to avoid inpatient hospitalizations. Patient understands that he is going to pass away from his heart issues. His goals of care are aligned with hospice, and he is appropriate for hospice care. However, the details of how that care will be delivered are currently undetermined. It is also unclear if patient's current caregiver at home is aligned with these goals. Follow-up family meeting today ## Acute on chronic diastolic heart failure with leg edema, although this might be his baseline. Continue home Lasix 20 mg daily ## Anemia of chronic disease appears to be at his baseline hemoglobin level around 7-8. Follow CBC ## Hypokalemia secondary to diuretics. Levels corrected today. Continue home potassium chloride 10 mEq BID ## BPH Continue home Cardura, finasteride and Flomax CODE STATUS: DNR Diet: Regular Prophylaxis: Lovenox 40 daily if patient staying inpatient 55 minutes spent in care of patient, 45 discussing goals of care and planning. Code(s): R78.81 - BACTEREMIA Telemedicine Encounter - Telemedicine Encounter Telemedicine Encounter: The entirety of this encounter was performed via Telemedicine"
--- NOTE | 2023-01-16 15:16 | PCM.DS ---
Discharge Summary Date of Admission: 01/14/23 14:18 Date of Discharge: 01/16/2023 Admitting Physician: GARIMA BELL MD Primary Care Provider: MULUGETA BOSS Allergies Allergies thiopental Allergy (Verified 01/13/23 16:26) Hospital Summary - Hospital Course Hospital Course: 87-year-old man with history of chronic diastolic heart failure, chronic hypoxic respiratory failure, hypertension, GERD, and TAVR, who had been at home on hospice when he was brought in at caregivers request because of diarrhea. Patient had been having constipation, and was given senna and Colace, after which she had diarrhea. Initially in the ED, he had some mild hypotension that responded to IV fluids. He had a questionable UTI and had blood and urine cultures collected. However, his caregiver did not want patient to return home as she would not allow hospice into the house any longer. Patient was initially admitted overnight until situation could be stabilized. Hi s diarrhea resolved immediately. The next day, patient initially had planned to go home without hospice services, until his son, his healthcare POA, was able to, detailed and discuss further plans. However, patient was found to have bacteremia. Upon discussion, patient wanted to stay in the hospital and get this identified and treated. Eventually he was found to have Enterococcus faecalis bacteremia, likely source being his chronic indwelling Rashid catheter. Urine culture only had MRSA. However, patient never had signs of infection, particularly no fever, leukocytosis, or even true pyuria (his UA was clouded by also heavy blood contamination and hyaline cast.) Patient's son arrived and family meeting was held on 01/16. See progress notes and case advocate notes for full discussion. In the end, patient wanted to continue on hospice services and limited goals of care, without aggressive treatment. However, he did not want to burden his current caregiver by returning to her home. Patient and son agreed to go to local SNF under self-pay, with hospice support again. We discussed the risk and benefits and opted to do oral treatment with Zyvox for his bacteremia, but without planning on echocardiogram to rule out endocarditis or repeat blood culture to demonstrate clearance. He will be on Zyvox until 02/11. He will resume care with [facility] hospice at the [facility]. Greater than 30 minutes spent arranging discharge. - Vitals & Intake/Output Vital Signs: Vital Signs Temperature 97.8 F 01/16/23 10:54 Pulse Rate 105 H 01/16/23 10:54 Respiratory Rate 16 01/16/23 10:54 Blood Pressure 113/76 01/16/23 10:54 O2 Sat by Pulse Oximetry 95 01/16/23 10:54 Intake & Output: Intake & Output 01/14/23 01/15/23 01/16/23 01/17/23 11:59 11:59 11:59 11:59 Intake Total 478 240 480 Output Total 169 9400 1100 Balance -709 -5534 -411 Weight 72.1 kg 72.1 kg 72.1 kg - Lab Result Diagrams: 01/16/23 09:22 01/16/23 09:22 Lab Results-Last 24 Hrs: Lab Results-Last 24 Hours 01/16/23 01/16/23 Range/Units 09:22 09:22 WBC 5.9 (4.0-10.5) x10^3/uL RBC 2.87 L (4.1-5.6) x10^6/uL Hgb 8.0 L (12.5-18.0) g/dL Hct 26.7 L (42-50) % MCV 93.0 (78-100) fL MCH 27.9 (26-32) pg MCHC 30.0 L (32-36) g/dL RDW 15.7 H (11.5-14.0) % Plt Count 173 (150-450) x10^3/uL MPV 10.0 (7.5-11.0) fL Gran % 63.1 (36.0-66.0) % Immature Gran % (Auto) 1.5 H (0.00-0.4) % Nucleat RBC Rel Count 0.0 (0.00-0.1) % Eos # (Auto) 0.04 (0-0.5) x10^3/uL Immature Gran # (Auto) 0.09 H (0.00-0.03) x10^3u/L Absolute Lymphs (auto) 1.37 (1.0-4.6) x10^3/uL Absolute Monos (auto) 0.65 (0.0-1.3) x10^3/uL Absolute Nucleated RBC 0.00 (0.00-0.01) x10^3u/L Lymphocytes % 23.4 L (24.0-44.0) % Monocytes % 11.1 (0.0-12.0) % Eosinophils % 0.7 (0.00-5.0) % Basophils % 0.2 (0.0-0.4) % Absolute Granulocytes 3.69 (1.4-6.9) x10^3/uL Basophils # 0.01 (0-0.4) x10^3/uL Sodium 135 L (137-145) mmol/L Potassium 3.5 (3.5-5.1) mmol/L Chloride 98 (98-107) mmol/L Carbon Dioxide 35 H (22-30) mmol/L Anion Gap 5.5 (5-15) MEQ/L BUN 14 (9-20) mg/dL Creatinine 0.52 L (0.66-1.25) mg/dL Estimated GFR > 60.0 ML/MIN Glucose 128 H (74-106) mg/dL Calcium 7.8 L (8.4-10.2) mg/dL Total Bilirubin 0.50 (0.2-1.3) mg/dL AST 37 (17-59) U/L ALT 24 (0-50) U/L Alkaline Phosphatase 126 (38-126) U/L Serum Total Protein 6.3 (6.3-8.2) g/dL Albumin 2.4 L (3.5-5.0) g/dL Micro Results-Entire Visit: Microbiology 01/13/23 18:00 Blood Culture Gram Stain - Final Blood Blood Culture - Final Enterococcus Faecalis 01/13/23 19:45 Blood Culture Gram Stain - Final Blood Blood Culture - Final Enterococcus Faecalis 01/13/23 16:45 Urine Culture - Final Clean Catch Midstream Methicillin Resist Staph Aur Urine culture greater than 100,000 MRSA (sensitive to Zyvox, Macrobid, Bactrim, Vanco) Blood culture x2 Enterococcus faecalis, sensitive to Zyvox, Vanco - Procedures and Test Procedures and Tests throughout Hospitalization: Therapy Orders & Screens 01/13/23 21:27 Respiratory Therapy Assessment DAILY Comment: Diagnosis: Hypotension, generalized weakness, diarrhea, CHF 01/13/23 23:19 Oxygen Nasal Cannula 4 lpm Comment: Diagnosis: Hypotension, generalized weakness, diarrhea, CHF 01/13/23 23:54 OT Screen per Nursing Assess ONCE Comment: Protocol Order Physician Instructions: Greater than 3 points order OT Admission Screening Reason For Exam: Triggered on Admission Diagnosis: Hypotension, generalized weakness, diarrhea, CHF Open Wound/Cellutlitis/Pressure Ulcers: Yes Acute Fx/ORIF/Change in wt bearing status: No Severe MUSCULOSKELETAL pain: Yes ADL Dysfunction: Yes Acute CVA w/Hemiparesis/Hemiplegia: No Decreased Functional Mobility/Strength: No Sprain/Strain: No Acute Post-op Mobility Dysfunction: No Total Points: 13 PT Screen per Nursing Assess ONCE Comment: Protocol Order Physician Instructions: Greater than 3 points order PT Admission Screenin Reason For Exam: Triggered on Admission Diagnosis: Hypotension, generalized weakness, diarrhea, CHF Open Wound/Cellutlitis/Pressure Ulcers: Yes Acute Fx/ORIF/Change in wt bearing status: No Severe MUSCULOSKELETAL pain: Yes ADL Dysfunction: Yes Acute CVA w/Hemiparesis/Hemiplegia: No Decreased Functional Mobility/Strength: No Sprain/Strain: No Acute Post-op Mobility Dysfunction: No Total Points: 13 01/16/23 01:28 Respiratory Therapy Assessment DAILY Comment: Diagnosis: BACTEREMIA Discharge Exam Wound Assessment: Skin/Wound Assessment Wound/Incision Assessment Start: 01/13/23 23:40 Text: Status: Active Freq: Q6H Protocol: Document 01/16/23 11:00 AR (Rec: 01/16/23 11:12 AR [id number]) Wound/Incision Assessment Left Buttock Wound Assessment Shift Assessment Wound Type Pressure Ulcer Wound Stage Deep Tissue Injury Drainage Amount None General Appearance Open to air,Reddened, Unapproximated Length (cm) (cm) 8 Width (cm) (cm) 3 Depth (cm) (cm) 0.5 Wound Bed Greatest Portion Red (Granulation) Wound Bed Lesser Portion Red (Granulation) Surrounding Tissue [place] Comment skin barrier ointment applied Wound Photo Photo Taken Yes Date: 01/14/23 Time: 04:00 Comments: GENERAL: Sitting up in bed in no acute distress NEURO: Alert, oriented to person, and place, but not situation CV: Regular rate and rhythm, no murmurs, pitting edema to bilateral legs PULM: Clear to auscultation bilaterally, no work of breathing, on 4 L oxygen by nasal cannula ABD: Soft, nontender, nondistended Final Diagnosis/Problem List - Final Discharge Diagnosis/Problem (1) Bacteremia Current Visit: Yes Status: Acute Code(s): R78.81 - BACTEREMIA (2) Congestive heart failure Current Visit: Yes Status: Acute Code(s): I50.9 - HEART FAILURE, UNSPECIFIED Telemedicine Encounter - Telemedicine Encounter Telemedicine Encounter: The entirety of this encounter was performed via Telemedicine" - Discharge Discharge Date: 01/16/23 Disposition: DC TO ANY "OTHER" CARE HOME Condition: Fair Prescriptions: New Linezolid 600 mg PO BID #52 tablet Continue Hydrocodone/APAP 10/325 mg [[place] 10/325 MG TableT] 1 ea PO BID PRN PRN Reason: Pain Atorvastatin Calcium 20 mg PO HS Doxazosin Mesylate [Cardura] 4 mg PO DAILY Famotidine 20 mg [Pepcid 20 MG] 20 mg PO HS Aspirin EC 81 mg [Ecotrin 81 mg] 81 mg PO DAILY Potassium Chloride 10 meq PO BID Finasteride 5 mg [Proscar 5 MG] 5 mg PO DAILY Tamsulosin HCl 0.4 mg [Flomax 0.4 MG] 0.4 mg PO DAILY Furosemide [Lasix] 20 mg PO DAILY #7 tablet Discontinued Ciprofloxacin [Cipro 500 MG] 500 mg PO UD Additional Instructions: CARE HOME ORDERS: OXYGEN AT 3-4L/NC REGULAR DIET HOSPICE CARE PER TREY Follow up with: MULUGETA BOSS MD [Primary Care Provider] - NOLVIA MOORE [Family Provider] -
[2023-01-16] MEDS ORDERED: TROUGH DRUG LEVELS IJ ONE (20:30)
[2023-01-18 21:18] VITALS: O2SAT 97
== END 2023-01-16 16:08 | DRG 872 ==
LOC: ED 16:16 → MED SURG 21:15 → OBSVTOIN 01-14 14:18
PROVIDERS: ADMIT Internal Medicine; ATTEND General Practice
DX: R78.81 Bacteremia (principal); J96.10 Chronic respiratory failure, unspecified whether with hypoxia or hypercapnia; N39.0 Urinary tract infection, site not specified; E87.1 Hypo-osmolality and hyponatremia; I11.0 Hypertensive heart disease with heart failure; I50.9 Heart failure, unspecified; L98.419 Non-pressure chronic ulcer of buttock with unspecified severity; R19.7 Diarrhea, unspecified; I95.9 Hypotension, unspecified; I25.10 Atherosclerotic heart disease of native coronary artery without angina pectoris; E78.5 Hyperlipidemia, unspecified; D64.9 Anemia, unspecified; E87.6 Hypokalemia; Z99.81 Dependence on supplemental oxygen; Z79.899 Other long term (current) drug therapy; Z20.828 Contact with and (suspected) exposure to other viral communicable diseases
CPT/HCPCS: 36415; 51702; 74176; 80048; 80053; 81001; 83605; 83690; 83735; 85025; 85027; 87040; 87077; 87086; 87186; 93005; 93268; 94640; 94760; 99285; G0378; Q3014; J0696; J7609; A9270-GY; J3370